=== PATIENT | male | born 1955 | race Caucasian/White ===

== ENCOUNTER → 2021-09-10 12:45 | Outpatient (REF) | payer MEDICARE, SELFPAY ==
--- NOTE | 2021-09-10 12:50 | CA_ITS ---
Transthoracic Echocardiogram Patient (Last, First, Middle): Alvarado Penaloza F Gender: Male Date of : 1955 Age: 66 Procedure Date: 09/10/2021 Procedure Type: Transthoracic Echocardiogram Location: OP Height: 182.88 cm Weight: 119.3 kg BSA: 2.39 m2 Heart Rate: bpm BP: 120 / 63 mmHg Overlay Plastician: SHERI Kat MD: Randell Robb [facility] Mine Development Engineer: Jean-Pierre Zendejas MD Symptoms: R01.1 - Cardiac murmur, unspecified Study Quality: Fair ECG Rhythm: Sinus Conclusions: - 1. Normal LV systolic and diastolic function 2. Normal cardiac valvular Doppler 3. No gross pericardial effusion Findings Procedure Information The patient declines contrast. Left Ventricle Normal left ventricular size, thickness, and systolic function. The visually estimated ejection fraction is between 55-60%. Spectral Doppler is indicative of a normal filling pattern. Right Ventricle Normal right ventricular cavity size and systolic function. Atria Both atria are normal in size. Interatrial shunt cannot be excluded. Aortic Valve Normal aortic valve structure and function. There is no aortic valve stenosis. There is no aortic valve regurgitation. Mitral Valve Normal mitral valve structure and function. There is trace mitral valve regurgitation. There is no mitral valve stenosis. Pulmonic Valve The pulmonic valve was not well visualized. Tricuspid Valve Likely normal tricuspid valve structure and function. Tricuspid regurgitation envelope is inadequate for calculation of right ventricular systolic pressure. Normal right atrial pressure. Great Vessels All visible segments of the aorta are normal in size. The pulmonary artery was not well visualized. Venous The inferior vena cava is normal in size and collapses greater than 50% with inspiration. Pericardium/Pleural There is no evidence of pericardial effusion. Prior Study Comparison No prior study available for comparison. Measurements 2D Linear Measurements IVSd: 1.05 0.6-0.9/0.6-1.0 cm LVIDd: 4.52 3.9-5.3/4.2-5.9 cm LVIDd Index: 1.89 2.4-3.2/2.2-3.1 cm/m2 LVIDs: 3.16 2.0-3.6 cm LVPWd: 1.00 0.7-1.1 cm Ao Root: 3.50 2.1-3.5 cm LA Diam: 4.00 2.7-3.8/3.0-4.0 cm LAIDs Index: 1.67 1.5-2.3 cm/m2 LV Mass: 198.90 67-162/88-224 g LV Mass Index: 83.22 43-95/49-115 g/m2 LVOT Diam: 2.10 3.0+(-)1.3 cm 2D Systolic Function EF 4C: 58.20 >55% EF 2C: 61.10 >55% EF BiP: 59.40 >55% Mitral Valve MV Pk E: 0.87 MV PK A: 0.77 MV Decel Time: 228.00 E/A: 1.10 E'Lateral: 9.57 E'Medial: 9.90 E/E' Med: 8.70 E/E' Lat: 9.00 PHT: 67.00 MVA PHT: 3.28 Decel [place]: 3.80 Aortic Valve AoV Pk Cornell: 1.61 AoV Mn Cornell: 1.10 AoV VTI: 0.33 AoV Pk Grad: 10.00 Aov Mn Grad: 6.00 ERICK Cont.VTI: 2.51 LVOT LVOT Pk Cornell: 1.06 LVOT Mn Cornell: 0.64 LVOT VTI: 0.24 LVOT Pk Grad: 4.00 LVOT Mn Grad: 2.00 LVOT Diam: 2.10 LVOT Area: 3.46 Diastolic Function MV Pk E: 0.87 MV Pk A: 0.77 E/A: 1.10 E'Medial: 9.90 E/E' Med: 8.70 E' Laterial: 9.57 E/E' Lat: 9.00 Right Ventricle TAPSE (mm): 2.59 TVS' Cornell: 13.10 Tricuspid Valve RA Press: 3.00 Great Vessels Aorta Ao Root-2D: 3.50 2.0-3.7 cm Ao Asc: 3.70 2.1-3.4 cm Ao Arch: 2.30 Updated in Other Vendor System with Status of Final Jean-Pierre Zendejas MD electronically signed on 09/10/2021 6:02:35 PM with status of Final
== END ==
LOC: HO.CARD 12:45
PROVIDERS: PCP Nurse Practitioner Family; Visit Provider Nurse Practitioner Family
DX: R01.1 Cardiac murmur, unspecified (principal)
CPT/HCPCS: 93306

== ENCOUNTER 2021-09-13 11:40 | Outpatient (REF) | payer MEDICARE, SELFPAY ==
[2021-09-13 14:02] LABS: Estimated Average Glucose 128 mg/dL; Hemoglobin A1c % 6.1 %
[2021-09-13 14:16] LABS: Creatinine Urine 291.96 mg/dL; Microalbum/Creatinine Ratio Ur 4.1 ug/mg cr
[2021-09-13 14:17] LABS: Alanine Aminotransferase 13 U/L (0-40); Albumin Level 4.6 g/dL (3.5-5.0); Alkaline Phosphatase 59 U/L (39-117); Anion Gap 13 (12-20); Aspartate Amino Transferase 22 U/L (5-37); Bilirubin Total 1.1 mg/dL (0.0-1.0); Blood Urea Nitrogen 13 mg/dL (9-16); Calcium 9.6 mg/dL (8.4-10.2); Carbon Dioxide 29 mmol/L (22-29); Chloride 104 mmol/L (96-108); Cholesterol 180 mg/dL; Estimated Glomerular Filt Rate 56; Glucose Fasting 150 mg/dL (60-99); HDL Cholesterol 46 mg/dL; LDL Cholesterol Calculated 119 mg/dl; Potassium 4.4 mmol/L (3.3-5.1); Sodium 142 mmol/L (135-145); Total Protein 7.3 g/dL (6.5-8.0); Triglycerides 79 mg/dL
[2021-09-13 14:41] LABS: Prostate Specific Antigen Scr 0.95 ng/mL (<0.05-4.0); TSH reflex Free T4 1.12 uIU/mL (0.32-4.0)
== END 2021-09-13 11:41 | disposition home or self-care (01) ==
LOC: HO.HMGCLDS 11:40
PROVIDERS: PCP Nurse Practitioner Family; Visit Provider Nurse Practitioner Family
DX: Z00.00 Encounter for general adult medical examination without abnormal findings (principal); Z12.5 Encounter for screening for malignant neoplasm of prostate; E11.9 Type 2 diabetes mellitus without complications
CPT/HCPCS: 36415; 80053; 80061; 82043; 83036; 84153; 84443

== ENCOUNTER 2021-09-30 15:13 | Emergency (ER) | payer MEDICARE, SELFPAY ==
--- NOTE | ~2021-09-30 | XR_ITS ---
EXAMINATION: XR CHEST CLINICAL INFORMATION: Palpitations COMPARISON: None TECHNIQUE: 2 views of the chest were obtained. FINDINGS: No significant abnormality is noted involving the heart, lungs, mediastinum, bony thorax or soft tissues. XR/XR chest 2V IMPRESSION: Unremarkable examination.
--- NOTE | 2021-09-30 15:17 | ECG_ITS ---
Test Reason : PALPITATIONS Blood Pressure : / mmHG Vent. Rate : 072 BPM Atrial Rate : 072 BPM P-R Int : 210 ms QRS Dur : 078 ms QT Int : 378 ms P-R-T Axes : 045 -12 011 degrees QTc Int : 413 ms Sinus rhythm with 1st degree A-V block Left axis deviation Nonspecific ST abnormality Lateral leads Abnormal ECG No previous ECGs available Referred By: Generic ED Physician Electronically Signed By:ERIC SOLORIO MD
[2021-09-30 15:44] VITALS: BP 164/83; PULSE 84; RESP 18; TEMP 36.6; O2SAT 97; BMI 35.9
[2021-09-30 16:25] LABS: COVID-19 Test Negative (Negative)
[2021-09-30 16:30] LABS: MANUAL DIFF FLAG NO
[2021-09-30 16:34] LABS: Basophils Percent Auto 0.6 % (0-2); Eosinophils Absolute Auto 0.1 X10*3/uL (0.0-0.4); Eosinophils Percent Auto 0.9 % (0-4); Hematocrit 45.1 % (42.0-52.0); Hemoglobin 15.4 g/dl (14.0-18.0); Imm Gran Abs Auto 0.01 X10*3/uL (0.00-0.03); Imm Gran Pct Auto 0.2 % (0.0-0.4); Lymphocytes Absolute Auto 1.6 X10*3/uL (1.2-4.9); Lymphocytes Percent Auto 25.3 % (20-40); Mean Corpuscular HGB Conc 34.1 g/dl (31.0-36.0); Mean Corpuscular Hemoglobin 31.3 pg (27.0-33.0); Mean Corpuscular Volume 91.7 fL (80.0-98.0); Mean Platelet Volume 10.4 fL (9.4-12.4); Monocytes Absolute Auto 0.5 X10*3/uL (0.1-1.2); Neutrophils Absolute Auto 4.2 x10*3/uL (2.0-8.3); Platelet Count 206 X10*3/uL (160-400); Red Blood Count 4.92 X10*6/uL (4.60-5.80); Red Cell Distribution Width 11.9 % (11.0-16.0); White Blood Count 6.4 X10*3/uL (4.8-10.8)
[2021-09-30 16:47] LABS: Alanine Aminotransferase 14 U/L (0-40); Albumin Level 4.7 g/dL (3.5-5.0); Alkaline Phosphatase 64 U/L (39-117); Anion Gap 12 (12-20); Aspartate Amino Transferase 19 U/L (5-37); Bilirubin Total 0.8 mg/dL (0.0-1.0); Blood Urea Nitrogen 11 mg/dL (9-16); Calcium 9.9 mg/dL (8.4-10.2); Carbon Dioxide 29 mmol/L (22-29); Chloride 102 mmol/L (96-108); Estimated Glomerular Filt Rate 59; Glucose Random 123 mg/dL (60-115); Potassium 4.1 mmol/L (3.3-5.1); Sodium 139 mmol/L (135-145); Total Protein 7.6 g/dL (6.5-8.0)
[2021-09-30 16:51] LABS: Troponin-I High Sensitivity 3.9 ng/L (<3.5-35.0)
[2021-09-30 17:08] VITALS: BP 162/65; PULSE 62; RESP 18; TEMP 36.7; O2SAT 96
--- NOTE | 2021-09-30 17:19 | ED.ARRPALP ---
HPI - Arrhythmia/Palpitations General Chief Complaint: Arrhythmia/Palpitations Stated Complaint: palpitations Time Seen by Provider: 09/30/21 17:14 Source: patient Mode of arrival: ambulatory Limitations: no limitations History of Present Illness HPI narrative: 66 y/o male with history of DM on metformin Presenting to the ER with intermittent palpitations and having for the last 2 or 3 days. He states he feels his heart beating. Sometimes it is fast other times it is normal rate. Episodes have been happening either at rest or with exertion and are brief. He states he has had a slight cough as well that is the only other symptom he has. He has no chest pain or shortness of breath. He has never had palpitations before. He is having some increased stress at home but otherwise denies a history of anxiety. He denies any history of drug use, no new meds, no alcohol use. He drinks 2 cups of caffeine per day without any recent increase or decrease. He recently saw his primary care doctor who thought he heard a systolic murmur so an echocardiogram was performed which was normal. MD complaint: palpitations Onset (ago): day(s) (3) Duration: intermittent Severity: mild Context: occurred during rest and occurred during exertion Associated symptoms: denies other symptoms Related Data Home Medications Medication Instructions Recorded Confirmed aspirin 81 mg chewable tablet 81 mg PO DAILY 09/14/20 04/17/21 flu vacc [id number](65yr up)-PF 240 ml IM 09/14/20 04/17/21 mcg/0.7 mL intramuscular syringe multivitamin with iron 1 tab PO DAILY 09/14/20 04/17/21 Previous Rx's Medication Instructions Recorded metformin 500 mg tablet 500 mg PO DAILY 90 Days #90 tab 05/21/21 Allergies Allergy/AdvReac Type Severity Reaction Status Date / Time atorvastatin Allergy Unknown Unknown Verified 09/30/21 15:43 Review of Systems Review of Systems: Constitutional: No Fever, No Chills ENT/Mouth: No sore throat, No Rhinorrhea, No Swallowing Difficulty Eyes: No Eye Pain, No Swelling, No Redness Cardiovascular: No Chest Pain, No SOB, No Orthopnea, No Edema Respiratory: + Cough, No Sputum, No Wheezing, No dyspnea, +Palpitations Gastrointestinal: No Nausea, No Vomiting, No Diarrhea, No abdominal Pain Genitourinary: No Dysuria, No Urinary Frequency, No Hematuria Musculoskeletal: No joint pain, No Myalgias Skin: No Skin Lesions, No rash Neuro: No Weakness, No Numbness, No Dizziness, No Headache Psych: + Anxiety/Panic, No Depression Heme/Lymph: No Bruising, No Lymphadenopathy Endocrine: No Polyuria, No Polydipsia [facility] Past Medical History Medical History (Updated 10/01/21 @ 00:02 by Nilsa Darby) Type 2 diabetes mellitus Surgical History History of surgery History of tooth extraction Family History Family History Father Stroke Unknown family medical history Pancreatic cancer Mother Cancer HTN (hypertension) Unknown family medical history Diabetes mellitus Social History Social History Alcohol intake: current Alcohol intake frequency: holidays/special occasions only Patient Tobacco Use Status: Never used Tobacco Use of substances other than those prescribed or required for medical reasons: No Advance Directives: No Advance Directives Information Provided: Yes Physical Exam Vital Signs: Vital Signs: Last Vital Signs Temp 98.1 F 09/30/21 17:08 Pulse 62 09/30/21 17:08 Resp 18 09/30/21 17:08 BP 162/65 H 09/30/21 17:08 Pulse Ox 96 09/30/21 17:08 Body Mass Index 35.9 Appearance: Alert. Oriented X3. No acute distress. Eyes: Pupils equal, round and reactive to light. ENT: Pharynx normal. Neck: Normal inspection. Neck supple. CVS: Normal heart rate and rhythm. Pulses normal. Respiratory: No respiratory distress. Breath sounds normal. Abdomen: Soft and nontender. +BS x4 Skin: Skin warm and dry. Normal skin color. Normal skin turgor. No rashes. Extremities: No lower extremity edema. Neuro: Oriented X 3. No motor deficit. No sensory deficit. Course Course Course Narrative: 66-year-old male with history of diabetes on metformin presents to the ER with intermittent brief episodes palpitations and feeling his heart beat that have been going on for the past 3 days. He has no associated chest pain, shortness of breath, diuresis, nausea, syncope or presyncope. His EKG is unremarkable, he has been in NSR during his ER visit without any active palpitations. Lytes and TSH are WNL. He had a recent normal ECHO which is reassuring. He follows w/ Dr. Mur[place] and will follow up this week - would likely benefit from a Holter monitor. Will have him f/u with Dr. Murica and Cardiology. Comfortable with discharge home with plan for outpatient follow up. Patient agrees with plan. MDM - Arrhythmia/Palpitations Differential Diagnosis Differential diagnosis: Likely palpitations, anxiety, sinus tachycardia, artial fibrillation, artial flutter, ventricular premature beats, supraventricular tachycardia, ventricular tachycardia and WPW Medical Records Attestation: I reviewed the patient's medical records. Lab Data Result diagrams: 09/30/21 16:12 09/30/21 16:12 Labs: Lab Results 09/30/21 09/30/21 09/30/21 Range/Units 15:50 16:12 16:12 WBC 6.4 (4.8-10.8) X10*3/uL RBC 4.92 (4.60-5.80) X10*6/uL Hgb 15.4 (14.0-18.0) g/dl Hct 45.1 (42.0-52.0) % MCV 91.7 (80.0-98.0) fL MCH 31.3 (27.0-33.0) pg MCHC 34.1 (31.0-36.0) g/dl RDW 11.9 (11.0-16.0) % Plt Count 206 (160-400) X10*3/uL MPV 10.4 (9.4-12.4) fL Immature Gran % (Auto) 0.2 (0.0-0.4) % Neut % (Auto) 66.0 (45-73) % Lymph % (Auto) 25.3 (20-40) % [place] % (Auto) 7.0 (2-11) % Eos % (Auto) 0.9 (0-4) % Baso % (Auto) 0.6 (0-2) % Lymph # (Auto) 1.6 (1.2-4.9) X10*3/uL [place] # (Auto) 0.5 (0.1-1.2) X10*3/uL Eos # (Auto) 0.1 (0.0-0.4) X10*3/uL Baso # (Auto) 0.0 (0.0-0.2) X10*3/uL Abs Immat Gran (auto) 0.01 (0.00-0.03) X10*3/uL Absolute Neuts (auto) 4.2 (2.0-8.3) x10*3/uL Absolute Nucleated RBC 0.000 (0.0-0.012) X10*3/uL Nucleated RBC % (auto) 0.0 (0.0-0.2) /100WBC Sodium 139 (135-145) mmol/L Potassium 4.1 (3.3-5.1) mmol/L Chloride 102 (96-108) mmol/L Carbon Dioxide 29 (22-29) mmol/L Anion Gap 12 (12-20) BUN 11 (9-16) mg/dL Creatinine 1.23 (0.5-1.4) mg/dL Estim Creat Clear Calc 79.0 Estimated GFR 59 Random Glucose 123 H (60-115) mg/dL Calcium 9.9 (8.4-10.2) mg/dL Magnesium 1.9 (1.6-2.6) mg/dL Total Bilirubin 0.8 (0.0-1.0) mg/dL AST 19 (5-37) U/L ALT 14 (0-40) U/L Alkaline Phosphatase 64 (39-117) U/L Troponin I High Sens (<3.5-35.0) ng/L Total Protein 7.6 (6.5-8.0) g/dL Albumin 4.7 (3.5-5.0) g/dL TSH 0.68 (0.32-4.0) uIU/mL COVID-19 (JL) Negative (Negative) COVID-19 Clin Com See Note 09/30/21 Range/Units 16:12 WBC (4.8-10.8) X10*3/uL RBC (4.60-5.80) X10*6/uL Hgb (14.0-18.0) g/dl Hct (42.0-52.0) % MCV (80.0-98.0) fL MCH (27.0-33.0) pg MCHC (31.0-36.0) g/dl RDW (11.0-16.0) % Plt Count (160-400) X10*3/uL MPV (9.4-12.4) fL Immature Gran % (Auto) (0.0-0.4) % Neut % (Auto) (45-73) % Lymph % (Auto) (20-40) % [place] % (Auto) (2-11) % Eos % (Auto) (0-4) % Baso % (Auto) (0-2) % Lymph # (Auto) (1.2-4.9) X10*3/uL [place] # (Auto) (0.1-1.2) X10*3/uL Eos # (Auto) (0.0-0.4) X10*3/uL Baso # (Auto) (0.0-0.2) X10*3/uL Abs Immat Gran (auto) (0.00-0.03) X10*3/uL Absolute Neuts (auto) (2.0-8.3) x10*3/uL Absolute Nucleated RBC (0.0-0.012) X10*3/uL Nucleated RBC % (auto) (0.0-0.2) /100WBC Sodium (135-145) mmol/L Potassium (3.3-5.1) mmol/L Chloride (96-108) mmol/L Carbon Dioxide (22-29) mmol/L Anion Gap (12-20) BUN (9-16) mg/dL Creatinine (0.5-1.4) mg/dL Estim Creat Clear Calc Estimated GFR Random Glucose (60-115) mg/dL Calcium (8.4-10.2) mg/dL Magnesium (1.6-2.6) mg/dL Total Bilirubin (0.0-1.0) mg/dL AST (5-37) U/L ALT (0-40) U/L Alkaline Phosphatase (39-117) U/L Troponin I High Sens 3.9 (<3.5-35.0) ng/L Total Protein (6.5-8.0) g/dL Albumin (3.5-5.0) g/dL TSH (0.32-4.0) uIU/mL COVID-19 (JL) (Negative) COVID-19 Clin Com ECG Data Attestation: I personally reviewed and interpreted this ECG as follows: ECG interpretation date: 09/30/21 ECG interpretation time: 18:12 Interpretation: Sinus rhythm with first-degree AV heart rate, 72 beats per minute, LA interval prolonged to 110 MS, normal QRS, no ST segment elevation or depressions, no premature ventricular complexes or premature atrial complexes. Critical Care Time Critical Care Time Critical Care Time: No Discharge Plan Discharge Clinical Impression: Palpitations Patient Disposition: Home, Self-Care Instructions: Heart Palpitations (ED) Additional Instructions: Your lab workup today was unremarkable. Recommend monitoring your heart rates at home. Recommend following up with Cardiology. Name and number below. Follow up with your Primary Care as scheduled on 10/16. If you develop new or worsening symptoms call 911 or come back to the ER for further evaluation. Prescriptions: No Action metformin 500 mg tablet 500 mg PO DAILY 90 Days Qty: 90 RF: 1 Fluzone HighDose Quad 20-21 PF 240 mcg/0.7 mL syringe IM RF: 0 multivitamin with iron Tablet 1 tab PO DAILY RF: 0 aspirin 81 mg tablet,chewable 81 mg PO DAILY RF: 0 Referrals: Tony Solis MD [Physician] - 1 week (palpitations, normall echo) Interventions: ED Discharge Assessment Last Done: 09/30/21 19:01 Discharge Date/Time: 09/30/21 19:01
[2021-09-30 17:31] LABS: Magnesium 1.9 mg/dL (1.6-2.6)
[2021-09-30 17:52] LABS: Thyroid Stimulating Hormone 0.68 uIU/mL (0.32-4.0)
== END 2021-09-30 19:01 | disposition home or self-care (01) ==
PROVIDERS: Physician Assistant; Emergency Provider Emergency Medicine; PCP Nurse Practitioner Family
DX: R00.2 Palpitations (principal); E11.9 Type 2 diabetes mellitus without complications; Z20.822 Contact with and (suspected) exposure to COVID-19; Z79.84 Long term (current) use of oral hypoglycemic drugs; Z79.82 Long term (current) use of aspirin; Z79.899 Other long term (current) drug therapy
CPT/HCPCS: 36415; 71046; 80053; 83735; 84443; 84484; 85025; 87635; 93005; 99283; 99284

== ENCOUNTER → 2021-10-17 15:07 | Outpatient (BNVA) | payer MEDICARE, SELFPAY | PROVIDERS: PCP Nurse Practitioner Family; Referring Provider Nurse Practitioner Family; Visit Provider Internal Medicine Cardiovascular Disease | DX: R00.2 Palpitations (principal) | CPT/HCPCS: 99202 ==

== ENCOUNTER 2022-11-13 16:19 | Outpatient (REF) | payer MEDICARE, SELFPAY ==
[2022-11-13 17:13] LABS: Mean Corpuscular HGB Conc 33.9 g/dl (31.0-36.0); Mean Corpuscular Volume 103.3 fL (80.0-98.0); Mean Platelet Volume 10.1 fL (9.4-12.4); NRBC Pct Auto 0.7 /100WBC (0.0-0.2); Platelet Count 195 X10*3/uL (160-400); Red Cell Distribution Width 19.3 % (11.0-16.0); White Blood Count 8.6 X10*3/uL (4.8-10.8)
[2022-11-13 17:59] LABS: Alanine Aminotransferase 16 U/L (0-40); Albumin Level 4.3 g/dL (3.5-5.0); Alkaline Phosphatase 64 U/L (39-117); Anion Gap 10 (12-20); Aspartate Amino Transferase 48 U/L (5-37); Bilirubin Total 7.9 mg/dL (0.0-1.0); Blood Urea Nitrogen 27 mg/dL (9-16); Calcium 9.2 mg/dL (8.4-10.2); Carbon Dioxide 26 mmol/L (22-29); Chloride 105 mmol/L (96-108); Cholesterol 90 mg/dL; Estimated Glomerular Filt Rate > 60; Glucose Fasting 236 mg/dL (60-99); HDL Cholesterol 41 mg/dL; LDL Cholesterol Calculated 26 mg/dl; Potassium 4.4 mmol/L (3.3-5.1); Sodium 137 mmol/L (135-145); Total Protein 6.8 g/dL (6.5-8.0); Triglycerides 119 mg/dL
[2022-11-13 18:01] LABS: Prostate Specific Antigen Scr 6.42 ng/mL (<0.05-4.0); TSH reflex Free T4 1.09 uIU/mL (0.32-4.0)
[2022-11-13 18:09] LABS: Hematocrit 18.6 % (42.0-52.0)
[2022-11-13 18:10] LABS: Hemoglobin 6.3 g/dl (14.0-18.0)
[2022-11-13 22:26] LABS: Bilirubin Direct 0.7 mg/dL (0.0-0.5)
[2022-11-14 11:15] LABS: Estimated Average Glucose 111 mg/dL; Hemoglobin A1c % 5.5 %
--- NOTE | 2022-11-14 15:02 | PM.HEMONCCN ---
Subjective - Subjective Chief complaint: Consult for: Significant anemia. Patient: new to practice Consult date: 11/14/22 Requesting Physician: Denis Primary Care Provider[facility] Summary: DIAGNOSIS: SEVERE ANEMIA. HPI - Consult Narrative Reason for consult: Consult for: Severe anemia. Narrative: Alvarado Penaloza is a 67 year old gentleman, who presented on 11/13, to the emergency department evaluation of elevated bilirubin and low hemoglobin. Patient stated since November 10 he noticed darkening of his urine and yellowish discoloration of his skin. He also has had dyspnea with exertion. Previously used to walk 2 miles but lately has not been able to walk to the bathroom without being short of breath. He denies fever, chills, chest discomfort, palpitations, melena, hematochezia, hematemesis, hemoptysis, abdominal pain, nausea, vomiting, diarrhea. No similar complaints in the past. He drinks 2-3 alcoholic drinks a week. Has been drinking for the last 40 years. Denies use of Tylenol. His initial colonoscopy showed polyps but follow-up colonoscopy about 5 years ago was negative. Review of Systems Constitutional: Constitutional: Reports fatigue, Reports lethargy and Reports malaise Cardiovascular: Cardiovascular: Reports no additional cardiovascular complaints and Reports dyspnea on exertion Respiratory: Respiratory: Reports dyspnea on exertion Gastrointestinal: Gastrointestinal: Reports no additional gastrointestinal complaints Genitourinary: Genitourinary: Reports no additional male genitourinary complaints Endocrine: Endocrine: Reports fatigue PMFSH Medical History; Type 2 diabetes mellitus: Mir-hxhebij-foppiwalb diabetes mellitus. Mixed hyperlipidemia. Functional capacity: independent ambulation Family History: Father: : Stroke Pancreatic cancer Mother: : Cancer HTN (hypertension) Diabetes mellitus Surgical History: History of surgery History of tooth extraction Social History: Housing: [facility] Alcohol intake: current Alcohol intake frequency: holidays/special occasions only Patient Tobacco Use Status: Former Tobacco user Review of Systems - Constitutional Reports system reviewed and no additional complaints, except as documented, Reports fatigue, Reports lack of energy, Reports malaise, Reports weakness, Denies fever(s), Denies weight loss - Eyes Reports system reviewed and no additional complaints, except as documented - ENT Reports system reviewed and no additional complaints, except as documented - Cardiovascular Reports system reviewed and no additional complaints, except as documented - Respiratory Reports no additional respiratory complaints - Gastrointestinal Reports system reviewed and no additional complaints, except as documented - Genitourinary Genitourinary: Reports no additional male genitourinary complaints - Musculoskeletal Reports system reviewed and no additional complaints, except as documented - Integumentary/Breasts Skin/Breast: Reports no additional skin complaints - Neurologic Reports system reviewed and no additional complaints, except as documented - Psychiatric Reports system reviewed and no additional complaints, except as documented - Endocrine Reports no additional endocrine complaints - Hematologic/Lymphatic Reports system reviewed and no additional complaints, except as documented - Allergic/Immunologic Reports system reviewed and no additional complaints, except as documented Oncology Screenings - ECOG Performance Status ECOG Performance Status: 2 [facility] Medical History: Medical History (Last Reviewed 11/13/22 @ 23:09 by Ema Liao MD) Type 2 diabetes mellitus Functional capacity: wheelchair bound Patient : No Family History: Family History (Last Reviewed 11/13/22 @ 23:09 by Ema Liao MD) Father Stroke Unknown family medical history Pancreatic cancer Mother Cancer HTN (hypertension) Unknown family medical history Diabetes mellitus Surgical History: Surgical History (Last Reviewed 11/13/22 @ 23:09 by Ema Liao MD) History of surgery History of tooth extraction Social History: Social History (Last Updated 11/14/22 @ 07:37 by Robbie Barrios MD) Living Situation History: Household Members: None Housing: Condominium Do you presently have visiting nurse or other home services: No Tobacco History: Patient Tobacco Use Status: Former Tobacco user Years Smoked: quit 30 years e-Cigarette/Vaping Use: Never Used Second Hand Smoke Exposure: No Advance Directives: Advance Directives Date on File: 11/15/22 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: Yes Current occupational status: retired Home Medications and Allergies Home Medications Medication Instructions Recorded Confirmed Type metformin 500 mg tablet 500 mg PO DAILY@1700 11/13/22 11/13/22 History rosuvastatin 10 mg tablet (Crestor) 10 mg PO BEDTIME 11/13/22 11/13/22 History Allergies Allergy/AdvReac Type Severity Reaction Status Date / Time atorvastatin Allergy Unknown Unknown Verified 11/13/22 19:43 Physical Exam - Constitutional Present: moderate distress - Routine HEENT Exam Head: Present: normocephalic Eye: Present: normal appearance ENT: Present: mucous membranes moist - Routine Neck Exam Present: supple - Routine Respiratory Exam Present: CTAB - Routine Cardiovascular Exam Cardiovascular: Present: RRR, S1, S2 - Routine Abdominal Exam Present: soft, nontender - Routine Extremities Exam Present: nontender - Routine Skin Exam Present: intact - Detailed Neurological Exam: Coma Scale Eye Opening: Spontaneous (4) - Routine Psychiatric Exam Present: anxious Hem/Onc Consult Result - Labs CBC & Chem 7: 11/13/22 16:47 11/13/22 16:47 Labs: Short CBC 11/13/22 Range/Units 16:47 WBC 8.6 (4.8-10.8) X10*3/uL Hgb 6.3 L* D (14.0-18.0) g/dl Hct 18.6 L* D (42.0-52.0) % Plt Count 195 (160-400) X10*3/uL BMP 11/13/22 16:47 Sodium 137 Potassium 4.4 Chloride 105 Carbon Dioxide 26 BUN 27 H Creatinine 1.01 Calcium 9.2 D Liver Function 11/13/22 Range/Units 16:47 Total Bilirubin 7.9 H (0.0-1.0) mg/dL Direct Bilirubin 0.7 H (0.0-0.5) mg/dL AST 48 H (5-37) U/L ALT 16 (0-40) U/L Alkaline Phosphatase 64 (39-117) U/L Albumin 4.3 (3.5-5.0) g/dL Assessment and Plan Patient Active problem list reviewed?: Yes (1) Hemolytic anemia Status: Acute (2) Acute hemolytic anemia Status: Acute Assessment and plan: This is a pleasant 67-year-old gentleman who presented yesterday, with easy fatigability. He was noted to have significant anemia: CBC from today: WBC 8.3, HGB 5.4, HCT 15.9, MCV 104.6, PLT 174. Retic: 14.9. LDH: 830. Bilirubin 5.4, direct bilirubin 0.7. FRANCESCA 80: Positive. For IgG. Negative for complement. Peripheral smear: In is a situs is, poikilocytosis , polychromasia, basophilic stippling. Picture is most consistent with hemolytic anemia. No underlying cause is obvious. DIFFERENTIAL DIAGNOSIS: 1. MEDICATION RELATED: Not on any new medications. 2. Megaloblastic Anemia: B12 470. Folate 16.2. 3. RELATED TO INFECTION: Mycoplasma pneumonia can cause hemolytic anemia on the basis of cold agglutinins. No evidence for pneumonia: Chest x-ray: Unremarkable chest examination. 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 PLAN: To start him on steroids. He received a dose of Solu-Medrol 125 mg. Can start prednisone 60 mg daily. He is significantly anemic. Will transfuse him with the least incompatible blood, to help improve his oxygen carrying capacity and functional status. Thank you for the consult, I will follow along with you, CC: Randell Robb. - Time Spent With Patient Time Spent with Patient (in minutes): 30
== END 2022-11-13 16:20 | disposition home or self-care (01) ==
LOC: HO.LAB 16:19
PROVIDERS: PCP Nurse Practitioner Family; Visit Provider Internal Medicine
DX: Z00.00 Encounter for general adult medical examination without abnormal findings (principal); E11.9 Type 2 diabetes mellitus without complications; R53.83 Other fatigue; Z12.5 Encounter for screening for malignant neoplasm of prostate
CPT/HCPCS: 36415; 80053; 80061; 82248; 83036; 84153; 84443; 85027

== ENCOUNTER 2022-11-13 19:21 | Inpatient (IN) | payer MEDICARE, SELFPAY ==
--- NOTE | ~2022-11-13 | CT_ITS ---
EXAMINATION: CT ABDOMEN AND PELVIS WITH CONTRAST CLINICAL INFORMATION: Question acute hepatic failure, portal thrombosis COMPARISON: None TECHNIQUE: Multidetector volumetric images were obtained from the superior aspect of the liver through the pubic symphysis following administration 85 mL of Omnipaque 350 intravenous contrast. Sagittal and coronal reformatted images were obtained on the technologist's workstation. Oral contrast: No This CT examination was performed using dose optimization techniques as appropriate, variously including the following: *Automated exposure control *Adjustment of mA and/or kV according to patient size (this includes techniques or standardized protocols for targeted exams where dose is matched to indication/reason for exam; i.e. extremities or head) *Use of iterative reconstruction technique DLP: 1030 mGy-cm FINDINGS: LUNG BASES: The visualized lung bases are unremarkable. LIVER, GALLBLADDER, AND BILIARY TREE: The liver is normal in size, shape, and attenuation. No focal hepatic lesion or biliary ductal dilatation is present. The gallbladder is unremarkable with no evidence of radiopaque gallstones, gallbladder wall thickening, or obvious pericholecystic inflammatory changes. PANCREAS: Unremarkable. SPLEEN: Unremarkable. ADRENAL GLANDS: Unremarkable. KIDNEYS AND URETERS: Probable cystic change on the right. No hydronephrosis. Nonobstructing small calculus on the left. Small low-density lesion on left to small to characterize may be an evolving cyst. BLADDER: Mildly thick-walled bladder GASTROINTESTINAL TRACT: Nonobstructing bowel pattern. No free fluid. Probable small hiatal hernia ABDOMINAL WALL: Probable beginnings of left greater than right inguinal herniation LYMPH NODES: Normal. VASCULAR: Some atherosclerotic change in the aorta. No aneurysmal change. The portal vein is enhancing. No convincing evidence for a filling defect though this is not a dedicated CTA/CTV PELVIC VISCERA: Prominent prostate. OSSEOUS STRUCTURES: Degenerative changes. Some ankylosis in the region of the left SI joint. Degenerative changes in the lower lumbar sacral spine with likely areas of herniation at the disc level CT/CT abdomen pelvis w IV con IMPRESSION: This is not a multiphase study directed toward the vasculature such as CTA CTV. Given this there is no evidence for filling defect in the portal system to suggest thrombosis. I would recommend ultrasound with Doppler interrogation for full evaluation. Other findings are as noted above. Mildly thick-walled bladder could be hypertrophy or cystitis Fleischner guidelines were followed.
--- NOTE | ~2022-11-13 | XR_ITS ---
EXAMINATION: XR CHEST CLINICAL INFORMATION: SOB COMPARISON: None TECHNIQUE: Frontal view of the chest was obtained. FINDINGS: No significant abnormality is noted involving the heart, lungs, mediastinum, bony thorax or soft tissues. XR/XR chest 1V IMPRESSION: Unremarkable chest examination.
[2022-11-13 19:38] VITALS: BP 158/63; PULSE 107; RESP 20; TEMP 36.6; O2SAT 98; BMI 36.3
--- NOTE | 2022-11-13 19:39 | ED.GENADULT ---
HPI - General Adult General Chief complaint: Abdominal Pain <AZUL Kruse - Last Filed: 11/13/22 19:55> Stated complaint: critical low H/H? urgent care and pcp referred him <AZUL Kruse - Last Filed: 11/13/22 19:55> Time Seen by Provider: 11/13/22 19:49 <AZUL Kruse - Last Filed: 11/13/22 19:55> Source: patient <Christian Stanley MD - Last Filed: 11/14/22 02:34> Mode of arrival: ambulatory <Christian Stanley MD - Last Filed: 11/14/22 02:34> Limitations: no limitations <Christian Stanley MD - Last Filed: 11/14/22 02:34> History of Present Illness HPI narrative: Patient is 67 years old with history of diabetes, hyperlipidemia sent from urgent care center for evaluation. Apparently patient has been feeling fatigued last 1 week for last few days noticed high colored urine felt nauseated no vomiting no abdominal pain patient has been drinking alcohol since age 20yrs , 2-3 drinks a week. No fever no chills no use of Tylenol no risk for hepatitis no melena no gum bleeding no bleeding from any other place patient initial colonoscopy showed polyps but follow-up last colonoscopy about 5 years ago negative <Christian Stanley MD - Last Filed: 11/14/22 02:34> Related Data Home medications: Home Medications Medication Instructions Recorded Confirmed metformin 500 mg tablet 500 mg PO DAILY@1700 11/13/22 11/13/22 rosuvastatin 10 mg tablet (Crestor) 10 mg PO BEDTIME 11/13/22 11/13/22 Previous Rx's Medication Instructions Recorded aspirin 81 mg chewable tablet 81 mg PO DAILY 90 days #90 tabs 12/06/21 multivitamin with iron 1 tab PO DAILY 90 days #90 tabs 12/06/21 sildenafil 25 mg tablet 25 mg PO DAILY PRN sexual activity 10/14/22 30 days #10 tabs <AZUL Kruse - Last Filed: 11/13/22 19:55> Allergies/adverse reactions: Allergies Allergy/AdvReac Type Severity Reaction Status Date / Time atorvastatin Allergy Unknown Unknown Verified 11/13/22 19:43 <AZUL Kruse Last Filed: 11/13/22 19:55> Review of Systems Review of Systems: Yes all other systems are reviewed and are negative <Christian Stanley MD - Last Filed: 11/14/22 02:34> [facility] Past Medical History Medical History: Medical History Type 2 diabetes mellitus <AZUL Kruse - Last Filed: 11/13/22 19:55> Surgical History: Surgical History History of surgery History of tooth extraction <AZUL Kruse - Last Filed: 11/13/22 19:55> Family History Family History: Family History Father Stroke Unknown family medical history Pancreatic cancer Mother Cancer HTN (hypertension) Unknown family medical history Diabetes mellitus <AZUL Kruse - Last Filed: 11/13/22 19:55> Social History Social History: Social History Housing: Condominium Alcohol intake: current Alcohol intake frequency: holidays/special occasions only Patient Tobacco Use Status: Former Tobacco user Years Smoked: quit 30 years e-Cigarette/Vaping Use: Never Used Second Hand Smoke Exposure: No Advance Directives: No Advance Directives Information Provided: Yes service: Yes Current occupational status: retired Cognitive needs: No Hearing needs: No Vision needs: No <AZUL Kruse - Last Filed: 11/13/22 19:55> Physical Exam ED Vital Signs: Vital Signs - 24 hr 11/13/22 19:38 Temperature 97.9 F Pulse Rate 107 H Respiratory Rate 20 Blood Pressure 158/63 H Pulse Oximetry 98 Oxygen Delivery Method Room Air BMI result Body Mass Index 36.3 <AZUL Kruse - Last Filed: 11/13/22 19:55> Vital Signs - 24 hr 11/13/22 19:38 Temperature 97.9 F Pulse Rate 107 H Respiratory Rate 20 Blood Pressure 158/63 H Pulse Oximetry 98 Oxygen Delivery Method Room Air BMI result Body Mass Index 36.3 <Christian Stanley MD - Last Filed: 11/14/22 02:34> Appearance: Alert. Oriented X3. No acute distress. Eyes: PERRLA, No Nystagmus pallor icteric skeletal ENT: Pharynx normal. Oral Mucosa moist Neck: Normal inspection. Neck supple. CVS: Normal heart rate and rhythm. Pulses normal. Respiratory: No respiratory distress. Equal air entry bilateral, no wheezing/rales/rhonchi Abdomen: Soft and nontender. Bowel sounds are present, no mass palpable, no CVA tenderness Skin: Skin warm and dry. icteric skin color. Normal skin turgor. Extremities: No lower extremity edema. No calf tenderness Neuro: Oriented X 3. <Christian Stanley MD - Last Filed: 11/14/22 02:34> Course Course Course Narrative: RME--67-year-old male with a past medical history of diabetes, on ASA, presenting to the ED complaining of hematuria, SOB, and jaundice noted yesterday. Admits was see at urgent care this afternoon noted to have low H&H & high bilirubin. H&H 6.3/18.6 today with a bilirubin of 7.9 and BUN of 27 Patient very short of breath after walking into triage, jaundice with scleral icterus. Tachycardic likely from volume depletion rather than severe sepsis Patient to be brought back to the main emergency department immediately. EKG, labs, UA, CXR, COVID/flu/RSV, hepatitis panel, type and screen and 1 unit of RBCs ordered <AZUL Kruse - Last Filed: 11/13/22 19:55> Medications Administered Generic Name Dose Route Start Last Admin Trade Name Freq PRN Reason Stop Dose Admin Sodium Chloride 3 ml 11/14/22 00:00 11/14/22 01:34 0.9 % Sodium Chloride Flush 3 Ml Syringe IVFLUSH Not Given QSHIFT PRAVEEN Discontinued Medications Generic Name Dose Route Start Last Admin Trade Name Freq PRN Reason Stop Dose Admin Iohexol 100 ml 11/13/22 21:02 11/13/22 21:02 Iohexol 350 Mg/Ml 100 Ml Infus..Btl IV 11/13/22 21:03 100 ml ONCE ONE Administration <AZUL Kruse - Last Filed: 11/13/22 19:55> Medications Administered Generic Name Dose Route Start Last Admin Trade Name Freangela PRN Reason Stop Dose Admin Sodium Chloride 3 ml 11/14/22 00:00 11/14/22 01:34 0.9 % Sodium Chloride Flush 3 Ml Syringe IVFLUSH Not Given QSHIFT PRAVEEN Discontinued Medications Generic Name Dose Route Start Last Admin Trade Name Freq PRN Reason Stop Dose Admin Iohexol 100 ml 11/13/22 21:02 11/13/22 21:02 Iohexol 350 Mg/Ml 100 Ml Infus..Btl IV 11/13/22 21:03 100 ml ONCE ONE Administration <Christian Stanley MD - Last Filed: 11/14/22 02:34> Medical Decision Making Medical Decision Making [facility] Narrative: Patient acute anemia with elevated indirect bilirubin with normal liver enzymes elevated LDH suggestive of intravascular hemolysis. CT scan of the abdomen negative for acute hepatic injury stool negative for occult blood urine negative for hemolysis patient does have significant anemia although has intravascular hemolysis but urine is negative need further evaluation will give IV steroids and to admit <Christian Stanley MD - Last Filed: 11/14/22 02:34> Differential Diagnosis Alcoholic cirrhosis/hemolytic anemia/hepatitis/portal vein thrombosis <Christian Stanley MD - Last Filed: 11/14/22 02:34> Lab Data [facility] Lab Attestation statement: I reviewed the patient's lab results. <Christian Stanley MD - Last Filed: 11/14/22 02:34> Labs: Lab Results 11/13/22 11/13/22 11/13/22 Range/Units 20:05 20:05 20:05 PT 12.7 (10.0-13.1) SEC INR 1.1 (0.9-1.1) APTT 24.2 L (26.0-36.4) SEC Direct Bilirubin (0.0-0.5) mg/dL Ammonia (13-55) umol/L Lactate Dehydrogenase (118-273) U/L Stool Occult Blood (NEGATIVE) Acetaminophen (<30) mcg/mL Blood Type O Positive Antibody Screen POSITIVE FRANCESCA, Polyspecific POSITIVE A Positive FRANCESCA Work-up IgG=Pos [id number] A Crossmatch See Detail 01/04/23 01/04/23 01/04/23 Range/Units 20:06 20:06 22:19 PT (10.0-13.1) SEC INR (0.9-1.1) APTT (26.0-36.4) SEC Direct Bilirubin 0.7 H (0.0-0.5) mg/dL Ammonia 25 (13-55) umol/L Lactate Dehydrogenase 830 H (118-273) U/L Stool Occult Blood NEGATIVE (NEGATIVE) Acetaminophen < 1 (<30) mcg/mL Blood Type Antibody Screen FRANCESCA, Polyspecific Positive FRANCESCA Work-up Crossmatch <AZUL Kruse - Last Filed: 11/13/22 19:55> Lab Results 11/13/22 11/13/22 11/13/22 Range/Units 20:05 20:05 20:05 PT 12.7 (10.0-13.1) SEC INR 1.1 (0.9-1.1) APTT 24.2 L (26.0-36.4) SEC Direct Bilirubin (0.0-0.5) mg/dL Ammonia (13-55) umol/L Lactate Dehydrogenase (118-273) U/L Stool Occult Blood (NEGATIVE) Acetaminophen (<30) mcg/mL Blood Type O Positive Antibody Screen POSITIVE FRANCESCA, Polyspecific POSITIVE A Positive FRANCESCA Work-up IgG=Pos [id number] A Crossmatch See Detail 11/13/22 11/13/22 11/13/22 Range/Units 20:06 20:06 22:19 PT (10.0-13.1) SEC INR (0.9-1.1) APTT (26.0-36.4) SEC Direct Bilirubin 0.7 H (0.0-0.5) mg/dL Ammonia 25 (13-55) umol/L Lactate Dehydrogenase 830 H (118-273) U/L Stool Occult Blood NEGATIVE (NEGATIVE) Acetaminophen < 1 (<30) mcg/mL Blood Type Antibody Screen FRANCESCA, Polyspecific Positive FRANCESCA Work-up Crossmatch <Christian Stanley MD - Last Filed: 11/14/22 02:34> Critical Care Time Critical Care Time Critical Care Time: Yes <Christian Stanley MD - Last Filed: 11/14/22 02:34> Total Critical Care Time: 55 <Christian Stanley MD - Last Filed: 11/14/22 02:34> Attestation: The patient was critically ill with a high probability of imminent or life threatening deterioration. I spent greater than 60 minutes of discontinuous time evaluating the patient,delivering critical care at the bedside, discussing and evaluating pertinent data with consultants. Critical care time does not include time spent performing separately billable procedures or teaching. Total time spent performing critical care was 55 minutes. <Christian Stanley MD - Last Filed: 11/14/22 02:34> Discharge Plan Discharge Clinical Impression: Acute hemolytic anemia, Hyperbilirubinemia <AZUL Kruse - Last Filed: 11/13/22 19:55> Patient Disposition: Admitted As Inpatient <AZUL Kruse - Last Filed: 11/13/22 19:55>
--- NOTE | 2022-11-13 19:40 | ECG_ITS ---
Test Reason : SOB Blood Pressure : / mmHG Vent. Rate : 092 BPM Atrial Rate : 092 BPM P-R Int : 190 ms QRS Dur : 074 ms QT Int : 356 ms P-R-T Axes : 029 -06 002 degrees QTc Int : 440 ms Normal sinus rhythm Normal ECG When compared with ECG of 30-SEP-2021 15:23, No significant change was found Referred By: Radha Valles Electronically Signed By:JAZLYN SOSA
[2022-11-13 20:30] LABS: INTERNATIONAL NORM RATIO 1.1 (0.9-1.1); Prothrombin Time 12.7 SEC (10.0-13.1)
[2022-11-13 20:33] LABS: Partial Thromboplastin Time 24.2 SEC (26.0-36.4)
[2022-11-13 20:35] LABS: Ammonia 25 umol/L (13-55)
[2022-11-13 20:56] LABS: Acetaminophen LAB < 1 mcg/mL (<30)
[2022-11-13] MEDS: iohexoL 350 MG/ML 100 ML INFUS..BTL IV (21:02)
--- NOTE | 2022-11-13 21:31 | PHA.MEDREC ---
Pharmacy Consult ? Medication Reconciliation Pharmacy has completed the medication reconciliation. Patient reported all medications. Cris Shields, DamionD
[2022-11-13 22:23] LABS: OBS Int Ctl Valid YES; OBS1 NEGATIVE (NEGATIVE)
[2022-11-13 23:01] LABS: Bilirubin Direct 0.7 mg/dL (0.0-0.5)
--- NOTE | 2022-11-13 23:03 | PM.IMHP ---
History of Present Illness Date of Service: 11/13/22 Chief Complaint: Fatigue This is a 67-year-old male with pertinent history of cfx-zsffdzi-dlyecyycx diabetes mellitus, mixed hyperlipidemia presents to the emergency department evaluation of elevated bilirubin and low hemoglobin. Patient states since November 10 he has noticed darkening of his urine and yellowish discoloration of his skin. Patient also has had dyspnea with exertion. Previously used to walk 2 miles but lately has not been able to walk to the bathroom without being short of breath. He denies fever, chills, chest discomfort, palpitations, melena, hematochezia, hematemesis, hemoptysis, abdominal pain, nausea, vomiting, diarrhea. No similar complaints in the past. Admits to drinking 2-3 alcoholic drinks a week has been drinking for the last 40 years. Denies use of Tylenol. Patient states initial colonoscopy showed polyps but follow-up colonoscopy about 5 years ago was negative. Review of Systems Constitutional: Constitutional: Reports fatigue, Reports lethargy and Reports malaise Cardiovascular: Cardiovascular: Reports no additional cardiovascular complaints and Reports dyspnea on exertion Respiratory: Respiratory: Reports dyspnea on exertion Gastrointestinal: Gastrointestinal: Reports no additional gastrointestinal complaints Genitourinary: Genitourinary: Reports no additional male genitourinary complaints Endocrine: Endocrine: Reports fatigue [facility] Medical History Type 2 diabetes mellitus Functional capacity: independent ambulation Family History Father Stroke Unknown family medical history Pancreatic cancer Mother Cancer HTN (hypertension) Unknown family medical history Diabetes mellitus Surgical History History of surgery History of tooth extraction Social History Housing: Condominium Alcohol intake: current Alcohol intake frequency: holidays/special occasions only Patient Tobacco Use Status: Former Tobacco user Years Smoked: quit 30 years e-Cigarette/Vaping Use: Never Used Second Hand Smoke Exposure: No Advance Directives: No Advance Directives Information Provided: Yes service: Yes Current occupational status: retired Cognitive needs: No Hearing needs: No Vision needs: No Meds Allergies Allergy/AdvReac Type Severity Reaction Status Date / Time atorvastatin Allergy Unknown Unknown Verified 11/13/22 19:43 Active Medications: Current Medications Acetaminophen (Acetaminophen 325 Mg Tablet) 650 mg PO Q6H PRN PRN Reason: Pain, Mild (Pain Scale 1-3) Dextrose (Dextrose 50 % 25 Gm/50 Ml Syringe) 25 gm IVPUSH Q15M PRN; Protocol PRN Reason: per Hypoglycemia Standing Ord. Glucose (Glucose Gel 15 Gm Gel..Gram.) 15 gm PO Q15M PRN; Protocol PRN Reason: per Hypoglycemia Standing Ord. Insulin Human Lispro (Insulin Lispro 100 Unit/Ml 3 Ml Vial) 0 unit SUBCUT [facility]; Protocol Melatonin (Melatonin 3 Mg Tablet) 6 mg PO BEDTIME PRN PRN Reason: Insomnia Ondansetron HCl (Ondansetron Hcl 4 Mg/2 Ml Vial) 4 mg IVPUSH Q8H PRN PRN Reason: Nausea and Vomiting Sodium Chloride (0.9 % Sodium Chloride Flush 3 Ml Syringe) 3 ml IVFLUSH [facility] Home Medications Medication Instructions Recorded Confirmed Last Taken Type metformin 500 mg tablet 500 mg PO DAILY@1700 11/13/22 11/13/22 11/13/22 History rosuvastatin 10 mg tablet (Crestor) 10 mg PO BEDTIME 11/13/22 11/13/22 11/12/22 History Physical Exam Vital Signs and Narrative: Vital Signs: Last Vital Signs Temp 97.9 F 11/13/22 19:38 Pulse 107 H 11/13/22 19:38 Resp 20 11/13/22 19:38 BP 158/63 H 11/13/22 19:38 Pulse Ox 98 11/13/22 19:38 O2 Del Method 11/13/22 19:38 BMI result Body Mass Index 36.3 Middle-aged male lying in bed in no distress Neck supple, no JVD, scleral icterus Tachycardic with regular rhythm, S1-S2 heard Regular breath sounds bilaterally, no wheezing or crackles appreciated Abdomen soft nontender, no guarding, no rigidity Patient is awake, alert and oriented to self, place, time and person ; no focal motor deficit Psych: Normal mood No pedal edema Results Labs Labs: Laboratory Results - last 24 hr 11/13/22 11/13/22 11/13/22 20:05 20:05 20:06 PT 12.7 INR 1.1 APTT 24.2 L Direct Bilirubin Ammonia 25 Stool Occult Blood Acetaminophen Blood Type O Positive Antibody Screen POSITIVE Crossmatch See Detail 11/13/22 11/13/22 20:06 22:19 PT INR APTT Direct Bilirubin 0.7 H Ammonia Stool Occult Blood NEGATIVE Acetaminophen < 1 Blood Type Antibody Screen Crossmatch Imaging Radiologist's Impressions: Impressions Chest X-Ray 11/13/22 20:16 IMPRESSION: Unremarkable chest examination. Abdomen/Pelvis CT 11/13/22 21:09 IMPRESSION: This is not a multiphase study directed toward the vasculature such as CTA CTV. Given this there is no evidence for filling defect in the portal system to suggest thrombosis. I would recommend ultrasound with Doppler interrogation for full evaluation. Other findings are as noted above. Mildly thick-walled bladder could be hypertrophy or cystitis Fleischner guidelines were followed. Assessment and Plan (1) Anemia: Status: Acute (2) Jaundice: Status: Acute (3) Diabetes: Status: Acute (4) Fatigue: Status: Acute Plan This is a 67-year-old male with pertinent history of khl-bvnqema-ocwrevfff diabetes mellitus, mixed hyperlipidemia presents to the emergency department evaluation of elevated bilirubin and low hemoglobin. #. Acute symptomatic anemia #. Unconjugated jaundice -patient without abdominal pain/GI symptoms and CT abdomen/pelvis unrevealing. Stool occult blood negative. Concerning for hemolysis as a cause of acute symptomatic anemia and unconjugated jaundice. Obtaining LDH and haptoglobin. No kidney failure or thrombocytopenia. Obtaining peripheral smear. No infectious etiology, UA pending. Obtain Jose test, retic count and consult Hematology. No new medication, no splenomegaly. 1 unit PRBC ordered in the ER. #. Pzb-ygvfqjp-fvkcenmua diabetes mellitus type 2 with hyperglycemia: Hold metformin and initiate Accu-Cheks with sliding scale insulin. Diet: Diabetic diet Full code DVT prophylaxis: Mechanical Admit as inpatient and will require two night minimum hospital stay for evaluation of acute anemia and unconjugated jaundice. Time Spent With Patient Time: Total time managing care of this patient today ____ minutes. Quality Stroke Does the patient have a stroke diagnosis?: No VTE Prior VTE?: No VTE Risk Level:: Medical - moderate - high VTE Device Contraindication: N/A - Device Ordered VTE Drug Contraindication: Treatment Not Indicated
[2022-11-13 23:17] LABS: Lactate Dehydrogenase 830 U/L (118-273)
--- NOTE | 2022-11-13 23:37 | PC.NURSE ---
called lab about the status of the blood to be transfued... informed that there were positive antbiodies on his type and screen and patient therefore requires further work up before blood can be transfused. lab states it may need to come [facility] they will keep me updated. patient resting comfortably on stretcher, on shelter monitor. no current complaints or distress.will continue to monitor
[2022-11-14] VITALS (17 sets, daily range): BP systolic 120–194; BP diastolic 41–81; PULSE 72–111; RESP 11–22; TEMP 36.6–37.4; O2SAT 96–100
[2022-11-14 00:24] LABS: Immature Retic Fraction 37.9 % (2.3-13.4); Retic HGB Equivalent 41.2 pg (30.0-35.0); Reticulocyte Percent 14.9 % (0.5-1.8); Reticulocytes Absolute 0.244 X10*6/uL (0.026-0.095)
[2022-11-14 02:41] LABS: Vitamin B12 470 pg/mL (200-900)
[2022-11-14 06:26] LABS: COVID-19 Test Negative (Negative); IDNOW Serial# BCCEAD1C
[2022-11-14 06:59] LABS: MANUAL DIFF FLAG NO
[2022-11-14 07:02] LABS: Basophils Percent Auto 0.5 % (0-2); Eosinophils Absolute Auto 0.2 X10*3/uL (0.0-0.4); Eosinophils Percent Auto 2.6 % (0-4); Imm Gran Abs Auto 0.12 X10*3/uL (0.00-0.03); Imm Gran Pct Auto 1.4 % (0.0-0.4); Lymphocytes Absolute Auto 1.7 X10*3/uL (1.2-4.9); Lymphocytes Percent Auto 20.1 % (20-40); Mean Corpuscular Hemoglobin 35.5 pg (27.0-33.0); Mean Corpuscular Volume 104.6 fL (80.0-98.0); Mean Platelet Volume 9.9 fL (9.4-12.4); Monocytes Absolute Auto 0.4 X10*3/uL (0.1-1.2); Monocytes Percent Auto 4.8 % (2-11); NRBC Pct Auto 0.8 /100WBC (0.0-0.2); Neutrophils Absolute Auto 5.9 x10*3/uL (2.0-8.3); Neutrophils Percent Auto 70.6 % (45-73); Platelet Count 174 X10*3/uL (160-400); Red Blood Count 1.52 X10*6/uL (4.60-5.80); Red Cell Distribution Width 21.2 % (11.0-16.0); White Blood Count 8.3 X10*3/uL (4.8-10.8)
[2022-11-14 07:05] LABS: Glucose, Whole Blood 191 mg/dL (60-115)
[2022-11-14 07:10] LABS: Hematocrit 15.9 % (42.0-52.0); Hemoglobin 5.4 g/dl (14.0-18.0)
[2022-11-14] MEDS: Insulin Lispro 100 UNIT/ML 3 ML VIAL SUBCUT ×4 (07:23→21:19)
[2022-11-14] MEDS: 0.9 % Sodium Chloride Flush 3 ML SYRINGE IVFLUSH ×2 (07:24→18:13)
[2022-11-14 07:31] LABS: Alanine Aminotransferase 16 U/L (0-40); Alkaline Phosphatase 56 U/L (39-117); Anion Gap 12 (12-20); Aspartate Amino Transferase 45 U/L (5-37); Bilirubin Total 5.4 mg/dL (0.0-1.0); Blood Urea Nitrogen 27 mg/dL (9-16); Calcium 8.9 mg/dL (8.4-10.2); Carbon Dioxide 25 mmol/L (22-29); Chloride 107 mmol/L (96-108); Creatinine Clr Calc Pharmacy 90.1; Estimated Glomerular Filt Rate > 60; Glucose Random 174 mg/dL (60-115); Potassium 3.9 mmol/L (3.3-5.1); Sodium 140 mmol/L (135-145); Total Protein 6.4 g/dL (6.5-8.0)
[2022-11-14] MEDS: Folic Acid 1 MG TABLET PO (08:06)
[2022-11-14] MEDS: methylPREDNISolone Sod Succ 125 MG/2 ML VIAL IVPUSH (08:06)
[2022-11-14] MEDS: Enoxaparin Sodium 40 MG/0.4 ML SYRINGE SUBCUT (08:07)
[2022-11-14 09:10] LABS: Folate 16.2 ng/mL (> or = 4.0)
[2022-11-14 12:24] LABS: Glucose, Whole Blood 320 mg/dL (60-115)
--- NOTE | 2022-11-14 12:33 | P.PNIM_ITS ---
Subjective Subjective Date of Service: 11/14/22 Interval History: cc: dark urine, jaundice interval history:weakness Physical Exam Vital Signs: Vital Signs: Last Vital Signs Temp 99.3 F 11/14/22 07:12 Pulse 111 H 11/14/22 09:39 Resp 16 11/14/22 07:12 BP 194/77 H 11/14/22 09:39 Pulse Ox 97 11/14/22 07:12 O2 Del Method 11/14/22 07:12 BMI result Body Mass Index 36.3 General: AO X 3, no acute distress, jaundiced Resp: CTA bilateral, no accessory muscles used CVS: S1,S2,RRR GI: soft, non tender, non distended Neuro: motor grossly intact, alert Psych: appropriate affect, appropriate insight Objective Data Active Medications Acetaminophen (Acetaminophen 325 Mg Tablet) 650 mg PO Q6H PRN PRN Reason: Pain, Mild (Pain Scale 1-3) Dextrose (Dextrose 50 % 25 Gm/50 Ml Syringe) 25 gm IVPUSH Q15M PRN; Protocol PRN Reason: per Hypoglycemia Standing Ord. Enoxaparin Sodium (Enoxaparin Sodium 40 Mg/0.4 Ml Syringe) 40 mg SUBCUT Q24H [facility] Last Admin: 11/14/22 08:07 Dose: 40 mg Documented By: TREVOR Folic Acid (Folic Acid 1 Mg Tablet) 1 mg PO DAILY [facility] Last Admin: 11/14/22 08:30 Dose: Not Given Documented By: TREVOR Non-Admin Reason: med already given this morning Glucose (Glucose Gel 15 Gm Gel..Gram.) 15 gm PO Q15M PRN; Protocol PRN Reason: per Hypoglycemia Standing Ord. Insulin Human Lispro (Insulin Lispro 100 Unit/Ml 3 Ml Vial) 0 unit SUBCUT QIDACHS [facility]; Protocol Last Admin: 11/14/22 07:23 Dose: 2 unit Documented By: TREVOR Prednisone (Prednisone 10 Mg Tablet) 50 mg PO BID [facility] Sodium Chloride (0.9 % Sodium Chloride Flush 3 Ml Syringe) 3 ml IVFLUSH QSHIFT [facility] Last Admin: 11/14/22 07:24 Dose: 3 ml Documented By: TREVOR Labs CBC & Chem 7: 11/14/22 06:42 11/14/22 06:42 Labs: Laboratory Results - last 24 hr 11/13/22 11/13/22 11/13/22 20:05 20:05 20:05 MCV MCH MCHC RDW Plt Count MPV Immature Gran % (Auto) Neut % (Auto) Lymph % (Auto) [place] % (Auto) Eos % (Auto) Baso % (Auto) Lymph # (Auto) [place] # (Auto) Eos # (Auto) Baso # (Auto) Abs Immat Gran (auto) Absolute Neuts (auto) Absolute Nucleated RBC Nucleated RBC % (auto) Absolute Retic Percent Retic Immature Retic Fraction Retic Hgb Equivalent PT 12.7 INR 1.1 APTT 24.2 L Anion Gap Estim Creat Clear Calc Estimated GFR POC Glucose Random Glucose Calcium Total Bilirubin Direct Bilirubin AST ALT Alkaline Phosphatase Ammonia Lactate Dehydrogenase Total Protein Albumin Vitamin B12 Folate Stool Occult Blood Acetaminophen COVID-19 (JL) COVID-19 Clin Com Blood Type O Positive Antibody Screen POSITIVE FRANCESCA, Polyspecific POSITIVE A Positive FRANCESCA Work-up IgG=Pos [id number] A Crossmatch See Detail 11/13/22 11/13/22 11/13/22 20:06 20:06 20:06 MCV MCH MCHC RDW Plt Count MPV Immature Gran % (Auto) Neut % (Auto) Lymph % (Auto) [place] % (Auto) Eos % (Auto) Baso % (Auto) Lymph # (Auto) [place] # (Auto) Eos # (Auto) Baso # (Auto) Abs Immat Gran (auto) Absolute Neuts (auto) Absolute Nucleated RBC Nucleated RBC % (auto) Absolute Retic Percent Retic Immature Retic Fraction Retic Hgb Equivalent PT INR APTT Anion Gap Estim Creat Clear Calc Estimated GFR POC Glucose Random Glucose Calcium Total Bilirubin Direct Bilirubin 0.7 H AST ALT Alkaline Phosphatase Ammonia 25 Lactate Dehydrogenase 830 H Total Protein Albumin Vitamin B12 470 Folate 16.2 Stool Occult Blood Acetaminophen < 1 COVID-19 (JL) COVID-19 Clin Com Blood Type Antibody Screen FRANCESCA, Polyspecific Positive FRANCESCA Work-up Crossmatch 11/13/22 11/14/22 11/14/22 22:19 00:15 06:05 MCV MCH MCHC RDW Plt Count MPV Immature Gran % (Auto) Neut % (Auto) Lymph % (Auto) [place] % (Auto) Eos % (Auto) Baso % (Auto) Lymph # (Auto) [place] # (Auto) Eos # (Auto) Baso # (Auto) Abs Immat Gran (auto) Absolute Neuts (auto) Absolute Nucleated RBC Nucleated RBC % (auto) Absolute Retic 0.244 H Percent Retic 14.9 H Immature Retic Fraction 37.9 H Retic Hgb Equivalent 41.2 H PT INR APTT Anion Gap Estim Creat Clear Calc Estimated GFR POC Glucose Random Glucose Calcium Total Bilirubin Direct Bilirubin AST ALT Alkaline Phosphatase Ammonia Lactate Dehydrogenase Total Protein Albumin Vitamin B12 Folate Stool Occult Blood NEGATIVE Acetaminophen COVID-19 (JL) Negative COVID-19 Clin Com See Note Blood Type Antibody Screen FRANCESCA, Polyspecific Positive FRANCESCA Work-up Crossmatch 11/14/22 11/14/22 11/14/22 06:42 06:42 07:00 MCV 104.6 H MCH 35.5 H MCHC 34.0 RDW 21.2 H Plt Count 174 MPV 9.9 Immature Gran % (Auto) 1.4 H Neut % (Auto) 70.6 Lymph % (Auto) 20.1 [place] % (Auto) 4.8 Eos % (Auto) 2.6 Baso % (Auto) 0.5 Lymph # (Auto) 1.7 [place] # (Auto) 0.4 Eos # (Auto) 0.2 Baso # (Auto) 0.0 Abs Immat Gran (auto) 0.12 H Absolute Neuts (auto) 5.9 Absolute Nucleated RBC 0.070 H Nucleated RBC % (auto) 0.8 H Absolute Retic Percent Retic Immature Retic Fraction Retic Hgb Equivalent PT INR APTT Anion Gap 12 Estim Creat Clear Calc 90.1 Estimated GFR > 60 POC Glucose 191 H Random Glucose 174 H D Calcium 8.9 Total Bilirubin 5.4 H Direct Bilirubin AST 45 H D ALT 16 Alkaline Phosphatase 56 Ammonia Lactate Dehydrogenase Total Protein 6.4 L Albumin 4.0 Vitamin B12 Folate Stool Occult Blood Acetaminophen COVID-19 (JL) COVID-19 Clin Com Blood Type Antibody Screen FRANCESCA, Polyspecific Positive FRANCESCA Work-up Crossmatch 11/14/22 12:15 MCV MCH MCHC RDW Plt Count MPV Immature Gran % (Auto) Neut % (Auto) Lymph % (Auto) [place] % (Auto) Eos % (Auto) Baso % (Auto) Lymph # (Auto) [place] # (Auto) Eos # (Auto) Baso # (Auto) Abs Immat Gran (auto) Absolute Neuts (auto) Absolute Nucleated RBC Nucleated RBC % (auto) Absolute Retic Percent Retic Immature Retic Fraction Retic Hgb Equivalent PT INR APTT Anion Gap Estim Creat Clear Calc Estimated GFR POC Glucose 320 H Random Glucose Calcium Total Bilirubin Direct Bilirubin AST ALT Alkaline Phosphatase Ammonia Lactate Dehydrogenase Total Protein Albumin Vitamin B12 Folate Stool Occult Blood Acetaminophen COVID-19 (JL) COVID-19 Clin Com Blood Type Antibody Screen FRANCESCA, Polyspecific Positive FRANCESCA Work-up Crossmatch Assessment and Plan (1) Acute hemolytic anemia: Status: Acute Plan 67M pmh DM, obesity presented with dark urine, found to have jane positive hemolytic anemia. severe hemolytic anemia hgb 5.4 jane positive steroids, folic acid hematology transfuse 2 units, monitor DM in[place], pocs hold metformin obesity weight loss recommended dvt prophylaxis - lovenox full code reason for continued hospitalization:severe anemia Time Spent With Patient Time: Total time managing care of this patient today ____ minutes. Quality Stroke Does the patient have a stroke diagnosis?: No VTE Prior VTE?: No VTE Risk Level:: Medical - moderate - high VTE Device Contraindication: N/A - Device Ordered VTE Drug Contraindication: Treatment Not Indicated
--- NOTE | 2022-11-14 14:34 | PC.NURSE ---
report to overflow RN
--- NOTE | 2022-11-14 14:35 | PC.NURSE ---
Call from lab that blood is read, initial call given to Isidro RN not notified until second call.
--- NOTE | 2022-11-14 19:40 | PC.NURSE ---
assumed care of patient at 1900 - blood ready. PCT to go grape picker blood in lab @1935. will transfuse momentarily . patient comfortable on stretcher, hall monitor placed on pt, wearing 2L O2 NC for suggested sleep apnea per RT. patient states makes him feel more comfortable, slightly less sob.
--- NOTE | 2022-11-14 20:10 | PC.NURSE ---
patient tolerating blood transfusion well. vital signs stable after 15 min - no signs of transfusion reaction. patient resting comfortably. will continue to monitor closely
[2022-11-14 20:35] LABS: Glucose, Whole Blood 378 mg/dL (60-115)
[2022-11-14 20:35] LABS: Glucose, Whole Blood 346 mg/dL (60-115)
--- NOTE | 2022-11-14 21:17 | MHC.EDTECH ---
pt is resting comfortable, he has a urinal to void, vitals were taken also his POC was done ,he is all set
[2022-11-15 01:45] VITALS: BP 132/49; PULSE 66; RESP 16; TEMP 36.9
[2022-11-15 05:11] LABS: Hematocrit 21.2 % (42.0-52.0); Hemoglobin 7.2 g/dl (14.0-18.0); Mean Platelet Volume 10.5 fL (9.4-12.4); Platelet Count 187 X10*3/uL (160-400); Red Blood Count 2.12 X10*6/uL (4.60-5.80); Red Cell Distribution Width 20.8 % (11.0-16.0); White Blood Count 11.5 X10*3/uL (4.8-10.8)
[2022-11-15 05:13] LABS: NRBC Pct Auto 1.5 /100WBC (0.0-0.2)
[2022-11-15 05:29] LABS: Alanine Aminotransferase 14 U/L (0-40); Albumin Level 4.1 g/dL (3.5-5.0); Alkaline Phosphatase 63 U/L (39-117); Anion Gap 14 (12-20); Aspartate Amino Transferase 37 U/L (5-37); Bilirubin Direct 0.4 mg/dL (0.0-0.5); Bilirubin Total 4.4 mg/dL (0.0-1.0); Blood Urea Nitrogen 30 mg/dL (9-16); Calcium 9.1 mg/dL (8.4-10.2); Carbon Dioxide 22 mmol/L (22-29); Chloride 109 mmol/L (96-108); Creatinine Clr Calc Pharmacy 83.1; Estimated Glomerular Filt Rate > 60; Glucose Fasting 179 mg/dL (60-99); Potassium 4.2 mmol/L (3.3-5.1); Sodium 141 mmol/L (135-145); Total Protein 6.5 g/dL (6.5-8.0)
--- NOTE | 2022-11-15 06:40 | PC.NURSE ---
Patient received 2 units of PRBC's. Tolerated well, lab work pending from this am.
[2022-11-15 07:21] LABS: Glucose, Whole Blood 159 mg/dL (60-115)
[2022-11-15 08:29] VITALS: BP 138/52; PULSE 70; RESP 14; TEMP 36.2; O2SAT 98
[2022-11-15] MEDS: Insulin Lispro 100 UNIT/ML 3 ML VIAL SUBCUT ×4 (09:35→21:03)
[2022-11-15] MEDS: Folic Acid 1 MG TABLET PO (09:35)
[2022-11-15] MEDS: predniSONE 10 MG TABLET 50 MG PO ×2 (09:35→21:02)
[2022-11-15] MEDS: Enoxaparin Sodium 40 MG/0.4 ML SYRINGE SUBCUT (09:37)
[2022-11-15] MEDS: 0.9 % Sodium Chloride Flush 3 ML SYRINGE IVFLUSH ×3 (09:37→23:14)
[2022-11-15 09:41] LABS: HBS Num1 0.01 mIU/mL (0-7.99); HBc Num1 0.05 S/CO (0.00-0.79); Hepatitis A Antibody IgM 0.31 Index (0-0.79); Hepatitis B Core Antibody Nonreactive (Nonreactive); Hepatitis B Surface Antigen Negative (Negative); ~HepC Num1 0.59 S/CO (0.00-0.79); ~Hepatitis A Antibody IgM Nonreactive (Nonreactive); ~Hepatitis B Surface Antibody NONREACTIVE (Nonreactive); ~Hepatitis C Antibody Nonreactive (Nonreactive)
--- NOTE | 2022-11-15 09:47 | MHC.EDTECH ---
Pt up to ambulate, provided new linens
--- NOTE | 2022-11-15 10:34 | HO.PM.IMPN ---
Subjective Subjective Date of Service: 11/15/22 Interval History: cc: dark urine, jaundice interval history:weakness improving after transfusion Physical Exam Vital Signs: Vital Signs: Last Vital Signs Temp 97.2 F 11/15/22 08:29 Pulse 70 11/15/22 08:29 Resp 14 11/15/22 08:29 BP 138/52 L 11/15/22 08:29 Pulse Ox 98 11/15/22 08:29 O2 Del Method 11/15/22 08:29 O2 Flow Rate 2 11/14/22 21:22 BMI result Body Mass Index 36.3 General: AO X 3, no acute distress, jaundiced Resp: CTA bilateral, no accessory muscles used CVS: S1,S2,RRR GI: soft, non tender, non distended Neuro: motor grossly intact, alert Psych: appropriate affect, appropriate insight Objective Data Active Medications Acetaminophen (Acetaminophen 325 Mg Tablet) 650 mg PO Q6H PRN PRN Reason: Pain, Mild (Pain Scale 1-3) Dextrose (Dextrose 50 % 25 Gm/50 Ml Syringe) 25 gm IVPUSH Q15M PRN; Protocol PRN Reason: per Hypoglycemia Standing Ord. Enoxaparin Sodium (Enoxaparin Sodium 40 Mg/0.4 Ml Syringe) 40 mg SUBCUT Q24H [facility] Last Admin: 11/15/22 09:37 Dose: 40 mg Documented By: ALLY Folic Acid (Folic Acid 1 Mg Tablet) 1 mg PO DAILY [facility] Last Admin: 11/15/22 09:35 Dose: 1 mg Documented By: ALLY Glucose (Glucose Gel 15 Gm Gel..Gram.) 15 gm PO Q15M PRN; Protocol PRN Reason: per Hypoglycemia Standing Ord. Insulin Human Lispro (Insulin Lispro 100 Unit/Ml 3 Ml Vial) 0 unit SUBCUT QIDACHS [facility]; Protocol Last Admin: 11/15/22 09:35 Dose: 2 unit Documented By: ALLY Prednisone (Prednisone 10 Mg Tablet) 50 mg PO BID [facility] Last Admin: 11/15/22 09:35 Dose: 50 mg Documented By: ALLY Sodium Chloride (0.9 % Sodium Chloride Flush 3 Ml Syringe) 3 ml IVFLUSH QSHIFT [facility] Last Admin: 11/15/22 09:37 Dose: 3 ml Documented By: ALLY Labs 11/15/22 04:27 11/15/22 04:27 Labs: Laboratory Results - last 24 hr 11/13/22 11/13/22 11/14/22 20:05 20:06 09:30 MCV MCH MCHC RDW Plt Count MPV Absolute Nucleated RBC Nucleated RBC % (auto) Anion Gap Estim Creat Clear Calc Estimated GFR POC Glucose Fasting Glucose Calcium Total Bilirubin Direct Bilirubin AST ALT Alkaline Phosphatase Total Protein Albumin Hepatitis A IgM Ab Nonreactive Hep Bs Antigen Negative Hep Bs Antibody NONREACTIVE Hep B Core Total Ab Nonreactive Hepatitis C Ab (EIA) Nonreactive Blood Type Antibody Screen Antibody Identification Inconclusive Crossmatch See Detail Enhanced Crossmatch Blood Bank Comment Technical Reference Report See note 11/14/22 11/14/22 11/14/22 12:15 15:58 18:04 MCV MCH MCHC RDW Plt Count MPV Absolute Nucleated RBC Nucleated RBC % (auto) Anion Gap Estim Creat Clear Calc Estimated GFR POC Glucose 320 H 346 H Fasting Glucose Calcium Total Bilirubin Direct Bilirubin AST ALT Alkaline Phosphatase Total Protein Albumin Hepatitis A IgM Ab Hep Bs Antigen Hep Bs Antibody Hep B Core Total Ab Hepatitis C Ab (EIA) Blood Type O Positive Antibody Screen POSITIVE Antibody Identification Warm Auto Antibody Crossmatch Enhanced Crossmatch See Detail Blood Bank Comment Reference Report 11/14/22 11/15/22 11/15/22 20:27 04:27 04:27 MCV 100.0 H MCH 34.0 H MCHC 34.0 RDW 20.8 H Plt Count 187 MPV 10.5 Absolute Nucleated RBC 0.170 H Nucleated RBC % (auto) 1.5 H Anion Gap 14 Estim Creat Clear Calc 83.1 Estimated GFR > 60 POC Glucose 378 H* Fasting Glucose 179 H Calcium 9.1 Total Bilirubin 4.4 H Direct Bilirubin 0.4 AST 37 ALT 14 Alkaline Phosphatase 63 Total Protein 6.5 Albumin 4.1 Hepatitis A IgM Ab Hep Bs Antigen Hep Bs Antibody Hep B Core Total Ab Hepatitis C Ab (EIA) Blood Type Antibody Screen Antibody Identification Crossmatch Enhanced Crossmatch Blood Bank Comment Reference Report 11/15/22 07:13 MCV MCH MCHC RDW Plt Count MPV Absolute Nucleated RBC Nucleated RBC % (auto) Anion Gap Estim Creat Clear Calc Estimated GFR POC Glucose 159 H Fasting Glucose Calcium Total Bilirubin Direct Bilirubin AST ALT Alkaline Phosphatase Total Protein Albumin Hepatitis A IgM Ab Hep Bs Antigen Hep Bs Antibody Hep B Core Total Ab Hepatitis C Ab (EIA) Blood Type Antibody Screen Antibody Identification Crossmatch Enhanced Crossmatch Blood Bank Comment Reference Report Assessment and Plan (1) Acute hemolytic anemia: Status: Acute Plan 67M pmh DM, obesity presented with dark urine, found to have jane positive hemolytic anemia. severe hemolytic anemia jane positive (warm) steroids, folic acid transfused 2 units, hgb improved from 5.4 to 7.2 follow up h and h hematology following DM insulin, pocs hold metformin obesity weight loss recommended dvt prophylaxis - lovenox full code reason for continued hospitalization:severe anemia Time Spent With Patient Time: Total time managing care of this patient today ____ minutes. Quality Stroke Does the patient have a stroke diagnosis?: No VTE Prior VTE?: No VTE Risk Level:: Medical - moderate - high VTE Device Contraindication: N/A - Device Ordered VTE Drug Contraindication: Treatment Not Indicated
[2022-11-15 11:50] VITALS: BP 151/60; PULSE 79; RESP 17; TEMP 36.8; O2SAT 100
[2022-11-15 11:55] VITALS: BMI 37.0
[2022-11-15 12:03] LABS: Glucose, Whole Blood 280 mg/dL (60-115)
--- NOTE | 2022-11-15 13:54 | MHC.CM.PN ---
CM met with Patient at bedside and addressed IMM with him, original was given to Patient and a copy has been placed on the chart. 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 Home/self care is the goal and CM has initiated and will follow for dc planning. PCP/DENTURE TECHNICIAN is Randell Robb and Patient has received Realitycheck/Usarium vax x3.
[2022-11-15 15:25] VITALS: BP 138/64; PULSE 72; RESP 17; TEMP 36.7; O2SAT 100
[2022-11-15 15:42] LABS: Glucose, Whole Blood 386 mg/dL (60-115)
[2022-11-15] MEDS: polyethylene glycoL 3350 17 GM POWD.PACK PO (17:16)
--- NOTE | 2022-11-15 19:10 | PC.NURSE ---
Pt alert and oriented x4. Pt admitted to rm 470 with Hemolytic Anemia. Pt is also a diabetic and POC at dinner was 386. notified.10 units insulin given with good effect.Pt is indepedent OOB.
[2022-11-15 20:00] VITALS: BP 122/68; PULSE 78; RESP 18; TEMP 37.2; O2SAT 98
[2022-11-15 20:39] LABS: Glucose, Whole Blood 380 mg/dL (60-115)
[2022-11-15] MEDS: Insulin Glargine,Hum.rec.anlog 100 UNIT/ML 10 ML VIAL 15 UNIT SUBCUT (21:02)
[2022-11-16] VITALS (9 sets, daily range): BP systolic 127–158; BP diastolic 58–78; PULSE 54–72; RESP 16–20; TEMP 36.6–37.4; O2SAT 96–99
[2022-11-16 06:24] LABS: Mean Corpuscular HGB Conc 33.2 g/dl (31.0-36.0); Mean Corpuscular Hemoglobin 34.4 pg (27.0-33.0); Mean Corpuscular Volume 103.6 fL (80.0-98.0); Mean Platelet Volume 10.4 fL (9.4-12.4); NRBC Pct Auto 0.9 /100WBC (0.0-0.2); Platelet Count 190 X10*3/uL (160-400); Red Blood Count 1.92 X10*6/uL (4.60-5.80); Red Cell Distribution Width 22.7 % (11.0-16.0); White Blood Count 11.5 X10*3/uL (4.8-10.8)
[2022-11-16 06:35] LABS: Alanine Aminotransferase 14 U/L (0-40); Alkaline Phosphatase 66 U/L (39-117); Anion Gap 12 (12-20); Aspartate Amino Transferase 32 U/L (5-37); Bilirubin Direct 0.5 mg/dL (0.0-0.5); Bilirubin Total 4.3 mg/dL (0.0-1.0); Blood Urea Nitrogen 32 mg/dL (9-16); Calcium 9.1 mg/dL (8.4-10.2); Carbon Dioxide 24 mmol/L (22-29); Chloride 106 mmol/L (96-108); Creatinine Clr Calc Pharmacy 86.2; Estimated Glomerular Filt Rate > 60; Glucose Fasting 238 mg/dL (60-99); Potassium 4.4 mmol/L (3.3-5.1); Sodium 138 mmol/L (135-145); Total Protein 6.5 g/dL (6.5-8.0)
[2022-11-16 06:39] LABS: Hemoglobin 6.6 g/dl (14.0-18.0)
[2022-11-16 06:40] LABS: Hematocrit 19.9 % (42.0-52.0)
[2022-11-16 07:54] LABS: Glucose, Whole Blood 213 mg/dL (60-115)
[2022-11-16] MEDS: Enoxaparin Sodium 40 MG/0.4 ML SYRINGE SUBCUT (08:07)
[2022-11-16] MEDS: Insulin Lispro 100 UNIT/ML 3 ML VIAL SUBCUT ×7 (08:08→20:14)
[2022-11-16] MEDS: predniSONE 10 MG TABLET 50 MG PO ×2 (08:09→20:14)
[2022-11-16] MEDS: Insulin Glargine,Hum.rec.anlog 100 UNIT/ML 10 ML VIAL 15 UNIT SUBCUT ×2 (08:09→20:14)
[2022-11-16] MEDS: Folic Acid 1 MG TABLET PO (08:09)
[2022-11-16] MEDS: 0.9 % Sodium Chloride Flush 3 ML SYRINGE IVFLUSH (08:10)
--- NOTE | 2022-11-16 10:58 | HO.PM.IMPN ---
Subjective Subjective Date of Service: 11/16/22 Interval History: cc: dark urine, jaundice interval history:weakness improving after transfusion Physical Exam Vital Signs: Vital Signs: Last Vital Signs Temp 97.9 F 11/16/22 07:53 Pulse 60 11/16/22 07:53 Resp 18 11/16/22 07:53 BP 142/63 H 11/16/22 07:53 Pulse Ox 98 11/16/22 07:53 O2 Del Method 11/16/22 07:53 O2 Flow Rate 2 11/14/22 21:22 BMI result Body Mass Index 37.0 General: AO X 3, no acute distress, jaundiced improved Resp: CTA bilateral, no accessory muscles used CVS: S1,S2,RRR GI: soft, non tender, non distended Neuro: motor grossly intact, alert Psych: appropriate affect, appropriate insight Objective Data Active Medications Acetaminophen (Acetaminophen 325 Mg Tablet) 650 mg PO Q6H PRN PRN Reason: Pain, Mild (Pain Scale 1-3) Dextrose (Dextrose 50 % 25 Gm/50 Ml Syringe) 25 gm IVPUSH Q15M PRN; Protocol PRN Reason: per Hypoglycemia Standing Ord. Enoxaparin Sodium (Enoxaparin Sodium 40 Mg/0.4 Ml Syringe) 40 mg SUBCUT Q24H [facility] Last Admin: 11/16/22 08:07 Dose: 40 mg Documented By: QUINTIN Folic Acid (Folic Acid 1 Mg Tablet) 1 mg PO DAILY [facility] Last Admin: 11/16/22 08:09 Dose: 1 mg Documented By: QUINTIN Glucose (Glucose Gel 15 Gm Gel..Gram.) 15 gm PO Q15M PRN; Protocol PRN Reason: per Hypoglycemia Standing Ord. Insulin Glargine (Insulin Glargine,Hum.Rec.Anlog 100 Unit/Ml 10 Ml Vial) 15 unit SUBCUT BID [facility] Last Admin: 11/16/22 08:09 Dose: 15 unit Documented By: QUINTIN Insulin Human Lispro (Insulin Lispro 100 Unit/Ml 3 Ml Vial) 0 unit SUBCUT QIDAS [facility]; Protocol Last Admin: 11/16/22 08:08 Dose: 4 unit Documented By: QUINTIN Insulin Human Lispro (Insulin Lispro 100 Unit/Ml 3 Ml Vial) 5 unit SUBCUT QIDAS [facility] Omeprazole (Omeprazole 40 Mg Capsule.) 40 mg PO DAILY@0630 [facility] Prednisone (Prednisone 10 Mg Tablet) 50 mg PO BID [facility] Last Admin: 11/16/22 08:09 Dose: 50 mg Documented By: QUINTIN Sodium Chloride (0.9 % Sodium Chloride Flush 3 Ml Syringe) 3 ml IVFLUSH QSHIFT [facility] Last Admin: 11/16/22 08:10 Dose: 3 ml Documented By: QUINTIN Labs 11/16/22 06:02 11/16/22 06:02 Labs: Laboratory Results - last 24 hr 11/13/22 11/14/22 11/15/22 20:05 15:58 11:59 MCV MCH MCHC RDW Plt Count MPV Absolute Nucleated RBC Nucleated RBC % (auto) Anion Gap Estim Creat Clear Calc Estimated GFR POC Glucose 280 H Fasting Glucose Calcium Total Bilirubin Direct Bilirubin AST ALT Alkaline Phosphatase Total Protein Albumin Blood Type O Positive Antibody Screen POSITIVE Antibody Identification Warm Auto Antibody Warm Auto Antibody Crossmatch See Detail Enhanced Crossmatch See Detail 11/15/22 11/15/22 11/16/22 15:37 19:28 06:02 MCV 103.6 H MCH 34.4 H MCHC 33.2 RDW 22.7 H Plt Count 190 MPV 10.4 Absolute Nucleated RBC 0.100 H Nucleated RBC % (auto) 0.9 H Anion Gap Estim Creat Clear Calc Estimated GFR POC Glucose 386 H* 380 H* Fasting Glucose Calcium Total Bilirubin Direct Bilirubin AST ALT Alkaline Phosphatase Total Protein Albumin Blood Type Antibody Screen Antibody Identification Crossmatch Enhanced Crossmatch 11/16/22 11/16/22 06:02 07:50 MCV MCH MCHC RDW Plt Count MPV Absolute Nucleated RBC Nucleated RBC % (auto) Anion Gap 12 Estim Creat Clear Calc 86.2 Estimated GFR > 60 POC Glucose 213 H Fasting Glucose 238 H Calcium 9.1 Total Bilirubin 4.3 H Direct Bilirubin 0.5 AST 32 ALT 14 Alkaline Phosphatase 66 Total Protein 6.5 Albumin 4.0 Blood Type Antibody Screen Antibody Identification Crossmatch Enhanced Crossmatch Assessment and Plan (1) Acute hemolytic anemia: Status: Acute Plan 67M pmh DM, obesity presented with dark urine, found to have jane positive hemolytic anemia. severe hemolytic anemia jane positive (warm) steroids, folic acid, gi prophylaxis - ppi transfused 2 units, hgb improved from 5.4 to 7.2, now down to 6.6 will transfuse another follow up h and h hematology following DM insulin, pocs hold metformin obesity weight loss recommended dvt prophylaxis - lovenox full code reason for continued hospitalization:severe anemia Time Spent With Patient Time: Total time managing care of this patient today ____ minutes. Quality Stroke Does the patient have a stroke diagnosis?: No VTE Prior VTE?: No VTE Risk Level:: Medical - moderate - high VTE Device Contraindication: N/A - Device Ordered VTE Drug Contraindication: Treatment Not Indicated
[2022-11-16 11:17] LABS: Glucose, Whole Blood 252 mg/dL (60-115)
[2022-11-16] MEDS: Omeprazole 40 MG CAPSULE.DR PO (11:42)
[2022-11-16 15:33] LABS: Haptoglobin <8 mg/dL (43-212)
[2022-11-16 15:42] LABS: Glucose, Whole Blood 292 mg/dL (60-115)
[2022-11-16 19:20] LABS: Glucose, Whole Blood 326 mg/dL (60-115)
[2022-11-17] MEDS: 0.9 % Sodium Chloride Flush 3 ML SYRINGE IVFLUSH ×4 (00:16→23:37)
[2022-11-17] MEDS: Omeprazole 40 MG CAPSULE.DR PO (06:19)
[2022-11-17 06:20] LABS: Hematocrit 23.1 % (42.0-52.0); Hemoglobin 7.5 g/dl (14.0-18.0); Mean Corpuscular HGB Conc 32.5 g/dl (31.0-36.0); Mean Corpuscular Hemoglobin 33.6 pg (27.0-33.0); Mean Corpuscular Volume 103.6 fL (80.0-98.0); Mean Platelet Volume 9.9 fL (9.4-12.4); NRBC Pct Auto 1.1 /100WBC (0.0-0.2); Platelet Count 183 X10*3/uL (160-400); Red Blood Count 2.23 X10*6/uL (4.60-5.80); Red Cell Distribution Width 23.6 % (11.0-16.0); White Blood Count 10.5 X10*3/uL (4.8-10.8)
[2022-11-17 06:54] LABS: Alanine Aminotransferase 12 U/L (0-40); Alkaline Phosphatase 59 U/L (39-117); Anion Gap 14 (12-20); Aspartate Amino Transferase 25 U/L (5-37); Bilirubin Direct 0.6 mg/dL (0.0-0.5); Bilirubin Total 3.6 mg/dL (0.0-1.0); Blood Urea Nitrogen 32 mg/dL (9-16); Carbon Dioxide 25 mmol/L (22-29); Chloride 105 mmol/L (96-108); Creatinine Clr Calc Pharmacy 86.2; Estimated Glomerular Filt Rate > 60; Glucose Fasting 200 mg/dL (60-99); Lactate Dehydrogenase 691 U/L (118-273); Potassium 4.5 mmol/L (3.3-5.1); Sodium 139 mmol/L (135-145); Total Protein 6.4 g/dL (6.5-8.0)
[2022-11-17 07:17] VITALS: BP 139/66; PULSE 67; RESP 17; TEMP 36.6; O2SAT 99
[2022-11-17 08:03] LABS: Glucose, Whole Blood 216 mg/dL (60-115)
[2022-11-17] MEDS: Insulin Lispro 100 UNIT/ML 3 ML VIAL SUBCUT ×8 (08:38→19:49)
[2022-11-17] MEDS: Insulin Glargine,Hum.rec.anlog 100 UNIT/ML 10 ML VIAL 15 UNIT SUBCUT ×2 (08:38→19:49)
[2022-11-17] MEDS: Enoxaparin Sodium 40 MG/0.4 ML SYRINGE SUBCUT (08:40)
[2022-11-17] MEDS: predniSONE 10 MG TABLET 50 MG PO ×2 (08:40→19:48)
[2022-11-17] MEDS: Folic Acid 1 MG TABLET PO (08:40)
--- NOTE | 2022-11-17 09:22 | HO.PM.IMPN ---
Subjective Subjective Date of Service: 11/17/22 Interval History: cc: dark urine, jaundice interval history:weakness improving after transfusion Physical Exam Vital Signs: Vital Signs: Last Vital Signs Temp 97.9 F 11/17/22 07:17 Pulse 67 11/17/22 07:17 Resp 17 11/17/22 07:17 BP 139/66 11/17/22 07:17 Pulse Ox 99 11/17/22 07:17 O2 Del Method 11/17/22 07:17 O2 Flow Rate 2 11/14/22 21:22 BMI result Body Mass Index 37.0 General: AO X 3, no acute distress, jaundiced improved Resp: CTA bilateral, no accessory muscles used CVS: S1,S2,RRR GI: soft, non tender, non distended Neuro: motor grossly intact, alert Psych: appropriate affect, appropriate insight Objective Data Active Medications Acetaminophen (Acetaminophen 325 Mg Tablet) 650 mg PO Q6H PRN PRN Reason: Pain, Mild (Pain Scale 1-3) Dextrose (Dextrose 50 % 25 Gm/50 Ml Syringe) 25 gm IVPUSH Q15M PRN; Protocol PRN Reason: per Hypoglycemia Standing Ord. Enoxaparin Sodium (Enoxaparin Sodium 40 Mg/0.4 Ml Syringe) 40 mg SUBCUT Q24H [facility] Last Admin: 11/17/22 08:40 Dose: 40 mg Documented By: QUINTIN Folic Acid (Folic Acid 1 Mg Tablet) 1 mg PO DAILY [facility] Last Admin: 11/17/22 08:40 Dose: 1 mg Documented By: QUINTIN Glucose (Glucose Gel 15 Gm Gel..Gram.) 15 gm PO Q15M PRN; Protocol PRN Reason: per Hypoglycemia Standing Ord. Insulin Glargine (Insulin Glargine,Hum.Rec.Anlog 100 Unit/Ml 10 Ml Vial) 15 unit SUBCUT BID [facility] Last Admin: 11/17/22 08:38 Dose: 15 unit Documented By: QUINTIN Insulin Human Lispro (Insulin Lispro 100 Unit/Ml 3 Ml Vial) 0 unit SUBCUT QIDACHS [facility]; Protocol Last Admin: 11/17/22 08:39 Dose: 4 unit Documented By: QUINTIN Insulin Human Lispro (Insulin Lispro 100 Unit/Ml 3 Ml Vial) 5 unit SUBCUT QIDACHS [facility] Last Admin: 11/17/22 08:39 Dose: 4 unit Documented By: QUINTIN Omeprazole (Omeprazole 40 Mg Capsule.Dr) 40 mg PO DAILY@0630 [facility] Last Admin: 11/17/22 06:19 Dose: 40 mg Documented By: HEMANTJ Prednisone (Prednisone 10 Mg Tablet) 50 mg PO BID [facility] Last Admin: 11/17/22 08:40 Dose: 50 mg Documented By: QUINTIN Sodium Chloride (0.9 % Sodium Chloride Flush 3 Ml Syringe) 3 ml IVFLUSH QSHIFT [facility] Last Admin: 11/17/22 08:41 Dose: 3 ml Documented By: QUINTIN Labs 11/17/22 06:09 11/17/22 06:09 Labs: Laboratory Results - last 24 hr 11/13/22 11/14/22 11/16/22 20:06 15:58 11:02 MCV MCH MCHC RDW Plt Count MPV Absolute Nucleated RBC Nucleated RBC % (auto) Haptoglobin <8 L Anion Gap Estim Creat Clear Calc Estimated GFR POC Glucose 252 H Fasting Glucose Calcium Total Bilirubin Direct Bilirubin AST ALT Alkaline Phosphatase Lactate Dehydrogenase Total Protein Albumin Blood Type O Positive Antibody Screen POSITIVE Antibody Identification Warm Auto Antibody Crossmatch (AHG) See Detail Enhanced Crossmatch See Detail 11/16/22 11/16/22 11/17/22 15:39 19:17 06:09 MCV 103.6 H MCH 33.6 H MCHC 32.5 RDW 23.6 H Plt Count 183 MPV 9.9 Absolute Nucleated RBC 0.120 H Nucleated RBC % (auto) 1.1 H Haptoglobin Anion Gap Estim Creat Clear Calc Estimated GFR POC Glucose 292 H 326 H Fasting Glucose Calcium Total Bilirubin Direct Bilirubin AST ALT Alkaline Phosphatase Lactate Dehydrogenase Total Protein Albumin Blood Type Antibody Screen Antibody Identification Crossmatch (AHG) Enhanced Crossmatch 11/17/22 11/17/22 06:09 07:20 MCV MCH MCHC RDW Plt Count MPV Absolute Nucleated RBC Nucleated RBC % (auto) Haptoglobin Anion Gap 14 Estim Creat Clear Calc 86.2 Estimated GFR > 60 POC Glucose 216 H Fasting Glucose 200 H Calcium 9.0 Total Bilirubin 3.6 H Direct Bilirubin 0.6 H AST 25 D ALT 12 Alkaline Phosphatase 59 Lactate Dehydrogenase 691 H Total Protein 6.4 L Albumin 4.0 Blood Type Antibody Screen Antibody Identification Crossmatch (AHG) Enhanced Crossmatch Assessment and Plan (1) Acute hemolytic anemia: Status: Acute Plan 67M pmh DM, obesity presented with dark urine, found to have jane positive hemolytic anemia. severe hemolytic anemia jane positive (warm) steroids, folic acid, gi prophylaxis - ppi transfused 3 units total, monitor hematology following DM insulin, pocs hold metformin HLD restart crestor obesity weight loss recommended dvt prophylaxis - lovenox full code reason for continued hospitalization:actively hemolyzing Time Spent With Patient Time: Total time managing care of this patient today ____ minutes. Quality Stroke Does the patient have a stroke diagnosis?: No VTE Prior VTE?: No VTE Risk Level:: Medical - moderate - high VTE Device Contraindication: N/A - Device Ordered VTE Drug Contraindication: Treatment Not Indicated
[2022-11-17 11:26] LABS: Glucose, Whole Blood 221 mg/dL (60-115)
[2022-11-17 12:00] VITALS: BP 134/63; PULSE 70; RESP 17; TEMP 36.4; O2SAT 99
[2022-11-17 16:00] VITALS: BP 131/62; PULSE 70; RESP 17; TEMP 37.2; O2SAT 98
[2022-11-17 16:38] LABS: Glucose, Whole Blood 316 mg/dL (60-115)
[2022-11-17 19:27] LABS: Glucose, Whole Blood 325 mg/dL (60-115)
[2022-11-17 19:45] VITALS: BP 144/64; PULSE 69; RESP 18; TEMP 36.9; O2SAT 96
[2022-11-17 23:55] VITALS: BP 163/76; PULSE 54; RESP 16; TEMP 36.8; O2SAT 97
[2022-11-18] MEDS: Omeprazole 40 MG CAPSULE.DR PO (06:25)
[2022-11-18 07:18] LABS: Hematocrit 23.1 % (42.0-52.0); Hemoglobin 7.5 g/dl (14.0-18.0); Mean Corpuscular HGB Conc 32.5 g/dl (31.0-36.0); Mean Corpuscular Hemoglobin 34.7 pg (27.0-33.0); Mean Corpuscular Volume 106.9 fL (80.0-98.0); Mean Platelet Volume 10.7 fL (9.4-12.4); Platelet Count 206 X10*3/uL (160-400); Red Blood Count 2.16 X10*6/uL (4.60-5.80); Red Cell Distribution Width 23.5 % (11.0-16.0); White Blood Count 9.9 X10*3/uL (4.8-10.8)
[2022-11-18 07:24] LABS: NRBC Pct Auto 1.4 /100WBC (0.0-0.2)
[2022-11-18 07:36] LABS: Alanine Aminotransferase 14 U/L (0-40); Alkaline Phosphatase 65 U/L (39-117); Anion Gap 13 (12-20); Aspartate Amino Transferase 25 U/L (5-37); Bilirubin Direct 0.6 mg/dL (0.0-0.5); Bilirubin Total 3.8 mg/dL (0.0-1.0); Blood Urea Nitrogen 31 mg/dL (9-16); Calcium 8.9 mg/dL (8.4-10.2); Carbon Dioxide 25 mmol/L (22-29); Chloride 106 mmol/L (96-108); Creatinine Clr Calc Pharmacy 86.2; Estimated Glomerular Filt Rate > 60; Glucose Fasting 187 mg/dL (60-99); Lactate Dehydrogenase 661 U/L (118-273); Potassium 4.4 mmol/L (3.3-5.1); Sodium 140 mmol/L (135-145); Total Protein 6.3 g/dL (6.5-8.0)
[2022-11-18 07:43] VITALS: BP 169/72; PULSE 59; RESP 20; TEMP 37.1; O2SAT 98
[2022-11-18 07:51] LABS: Glucose, Whole Blood 179 mg/dL (60-115)
[2022-11-18] MEDS: Insulin Lispro 100 UNIT/ML 3 ML VIAL SUBCUT ×4 (08:26→11:49)
[2022-11-18] MEDS: Insulin Glargine,Hum.rec.anlog 100 UNIT/ML 10 ML VIAL 15 UNIT SUBCUT (08:27)
[2022-11-18] MEDS: Enoxaparin Sodium 40 MG/0.4 ML SYRINGE SUBCUT (08:27)
[2022-11-18] MEDS: 0.9 % Sodium Chloride Flush 3 ML SYRINGE IVFLUSH (08:28)
[2022-11-18] MEDS: Folic Acid 1 MG TABLET PO (08:28)
[2022-11-18] MEDS: predniSONE 10 MG TABLET 50 MG PO (08:28)
--- NOTE | 2022-11-18 10:17 | PM.DS ---
DS: Providers Provider Date of Service: 11/18/22 Date of admission: 11/13/22 22:40 Primary care physician: OMAR Schmitz- Consults: 11/13/22 23:19 Consult to Hematology / Oncology Routine Consulting Provider: Colleen Hassan Reason for consultation: ?hemolytic anemia DS: Diagnosis Discharge Diagnosis (1) Acute hemolytic anemia: Status: Acute DS: Summary Hospital Course Hospital Course: from initial hpi: Chief Complaint: Fatigue This is a 67-year-old male with pertinent history of fcm-asvqpsg-yezcbfsox diabetes mellitus, mixed hyperlipidemia presents to the emergency department evaluation of elevated bilirubin and low hemoglobin.? Patient states since November 10 he has noticed darkening of his urine and yellowish discoloration of his skin.? Patient also has had dyspnea with exertion.? Previously used to walk 2 miles but lately has not been able to walk to the bathroom without being short of breath.? He denies fever, chills, chest discomfort, palpitations, melena, hematochezia, hematemesis, hemoptysis, abdominal pain, nausea, vomiting, diarrhea.? No similar complaints in the past.? Admits to drinking 2-3 alcoholic drinks a week has been drinking for the last 40 years.? Denies use of Tylenol.? Patient states initial colonoscopy showed polyps but follow-up colonoscopy about 5 years ago was negative. hospital course: patient was admitted for severe hemolytic anemia, Jose positive found to have warm antibody. He was transfused a total 3 units during hospitalization and hemoglobin stabilized at 7.5. He was started on prednisone 50 mg b.i.d. and folic acid and omeprazole for GI prophylaxis. His symptoms significantly improved. He was seen by Hematology recommending continue prednisone and outpatient follow-up. His diabetes was complicated by hyperglycemia likely due to prednisone. He was given basal bolus insulin. On discharge he will continue his home metformin and be started on basal insulin. First hyperlipidemia was continued on Crestor. For obesity weight loss is recommended. Patient is feeling better will be discharged home. He will follow-up with Hematology. Time Spent with Patient Time attestation: Total time managing care of this patient today ____ minutes. Discharge coordination time: Greater than 30 minutes Quality: Safe Use of Opioids Does Pt have an Active Cancer Diagnosis on the Problem List?: No Quality: Stroke Does the patient have a stroke diagnosis?: No Physical Exam Vital Signs: Vital Signs: Last Vital Signs Temp 98.8 F 11/18/22 07:43 Pulse 59 11/18/22 07:43 Resp 20 11/18/22 07:43 BP 169/72 H 11/18/22 07:43 Pulse Ox 98 11/18/22 07:43 O2 Del Method 11/18/22 07:43 O2 Flow Rate 2 11/14/22 21:22 BMI result Body Mass Index 37.0 General: AO X 3, no acute distress Resp: CTA bilateral, no accessory muscles used CVS: S1,S2,RRR GI: soft, non tender, non distended Neuro: motor grossly intact, alert Psych: appropriate affect, appropriate insight DS: Data Data Completed and Pending Labs on day of discharge: Laboratory Results - last 24 hr 11/17/22 11/17/22 11/17/22 11:22 16:00 19:23 WBC RBC Hgb Hct MCV MCH MCHC RDW Plt Count MPV Absolute Nucleated RBC Nucleated RBC % (auto) Sodium Potassium Chloride Carbon Dioxide Anion Gap BUN Creatinine Estim Creat Clear Calc Estimated GFR POC Glucose 221 H 316 H 325 H Fasting Glucose Calcium Total Bilirubin Direct Bilirubin AST ALT Alkaline Phosphatase Lactate Dehydrogenase Total Protein Albumin 11/18/22 11/18/22 11/18/22 06:34 06:34 07:45 WBC 9.9 RBC 2.16 L Hgb 7.5 L Hct 23.1 L MCV 106.9 H MCH 34.7 H MCHC 32.5 RDW 23.5 H Plt Count 206 MPV 10.7 Absolute Nucleated RBC 0.140 H Nucleated RBC % (auto) 1.4 H Sodium 140 Potassium 4.4 Chloride 106 Carbon Dioxide 25 Anion Gap 13 BUN 31 H Creatinine 1.13 Estim Creat Clear Calc 86.2 Estimated GFR > 60 POC Glucose 179 H Fasting Glucose 187 H Calcium 8.9 Total Bilirubin 3.8 H Direct Bilirubin 0.6 H AST 25 ALT 14 Alkaline Phosphatase 65 Lactate Dehydrogenase 661 H Total Protein 6.3 L Albumin 4.0 Discharge Plan Discharge Anticipated Discharge Date/Time: 11/18/22 10:09 Patient Disposition: Home, Self-Care Discharge Diagnosis: hemolytic anemia Referrals: Colleen Hassan MD [Physician] - 1 Week (hemolytic anemia) Randell Robb FNP-BC [Primary Care Provider] - 1 Week Discharge Medications: New insulin glargine [Lantus U-100 Insulin] 100 unit/mL Solution 30 unit subcut DAILY Qty: 10 0RF Rx Instructions: while on prednisone omeprazole 40 mg Capsule,Delayed Release(Dr/Ec) 40 mg PO DAILY@0630 Qty: 30 0RF prednisone 50 mg tablet 50 mg PO BID Qty: 60 0RF Continued multivitamin with iron Tablet 1 tab PO DAILY 90 Days Qty: 90 0RF aspirin 81 mg tablet,chewable 81 mg PO DAILY 90 Days Qty: 90 0RF sildenafil 25 mg tablet 25 mg PO DAILY PRN (Reason: sexual activity) 30 Days Qty: 10 0RF Rx Instructions: administer 30 minutes to 4 hours before activity metformin 500 mg tablet 500 mg PO DAILY@1700 rosuvastatin [Crestor] 10 mg tablet 10 mg PO BEDTIME Discharge Orders: Discharge Order (Routine); Ordered 11/18/22 Ordered By: Robbie Barrios Diet: Advance to usual diet Activity on Discharge: As tolerated Stand Alone Forms: Patient Portal Discharge page Care Plan Goals: recovery Health Concerns: hemolytic anemia Plan of Treatment: prednisone 50mg bid for now, follow up with hematology Assessment: see above
[2022-11-18 10:51] VITALS: BP 149/68; PULSE 71; RESP 20; TEMP 37.1; O2SAT 97
[2022-11-18 10:56] LABS: Glucose, Whole Blood 270 mg/dL (60-115)
--- NOTE | 2022-11-18 11:15 | MHC.CM.PN ---
Patient has been medically cleared for dc to home today, self care. CM met with Patient at bedside and addressed IMM with him, providing him with the original and a copy was placed on the chart. Patient is aware of and in agreement with the dc plan.
--- NOTE | 2022-11-18 14:13 | PC.NURSE ---
pt A&o, accompanied by hosp staff via wheelchair due to pt request, to front entrance to be picked up by family member. IV out, pt was not on tele monitor. pt home med returned to pt. discharge instruction given to PT and pt verbalized understanding.
== END 2022-11-18 14:17 | disposition home or self-care (01) | DRG 810 ==
LOC: HO.ED 20:02 → HO.EDOVER 22:43 → HO.IMC 11-15 09:28
PROVIDERS: Physician Assistant; Admitting Provider Student in an Organized Health Care Education/Training Program; Emergency Provider Internal Medicine; PCP Nurse Practitioner Family; Visit Provider Internal Medicine
DX: D59.9 Acquired hemolytic anemia, unspecified (principal); E78.2 Mixed hyperlipidemia; E11.65 Type 2 diabetes mellitus with hyperglycemia; E66.9 Obesity, unspecified; E78.5 Hyperlipidemia, unspecified; E80.6 Other disorders of bilirubin metabolism; Z68.37 Body mass index [BMI] 37.0-37.9, adult; Z20.822 Contact with and (suspected) exposure to COVID-19; Z87.891 Personal history of nicotine dependence; Z88.8 Allergy status to other drugs, medicaments and biological substances; Z79.4 Long term (current) use of insulin; Z79.82 Long term (current) use of aspirin; Z79.84 Long term (current) use of oral hypoglycemic drugs; Z79.899 Other long term (current) drug therapy
CPT/HCPCS: 36415; 71045; 74177; 80048; 80053; 80076; 80143; 82140; 82248; 82272; 82607; 82746; 82947; 83010; 83615; 85025; 85027; 85045; 85610; 85730; 86704; 86706; 86709; 86803; 86850; 86860; 86870; 86880; 86885; 86900; 86901; 86905; 86906; 86920; 86921; 86970; 86978; 87340; 87635; 93005; 99284; 99285; J1650; J2930; P9016; Q9967

== ENCOUNTER → 2022-12-03 11:26 | Outpatient (BNV) | payer MEDICARE, SELFPAY | PROVIDERS: PCP Nurse Practitioner Family; Visit Provider Internal Medicine Medical Oncology | DX: D59.10 Autoimmune hemolytic anemia, unspecified (principal) | CPT/HCPCS: 99212; 99213; 99214 ==

== ENCOUNTER 2022-12-06 10:57 | Outpatient (REF) | payer MEDICARE, SELFPAY ==
[2022-12-06 14:05] LABS: MANUAL DIFF FLAG NO
[2022-12-06 14:12] LABS: Basophils Percent Auto 0.2 % (0-2); Eosinophils Absolute Auto 0.1 X10*3/uL (0.0-0.4); Eosinophils Percent Auto 1.4 % (0-4); Hemoglobin 11.3 g/dl (14.0-18.0); Imm Gran Abs Auto 0.07 X10*3/uL (0.00-0.03); Imm Gran Pct Auto 1.1 % (0.0-0.4); Lymphocytes Absolute Auto 1.7 X10*3/uL (1.2-4.9); Mean Corpuscular HGB Conc 33.2 g/dl (31.0-36.0); Mean Corpuscular Hemoglobin 35.5 pg (27.0-33.0); Mean Corpuscular Volume 106.9 fL (80.0-98.0); Mean Platelet Volume 10.1 fL (9.4-12.4); Monocytes Absolute Auto 0.4 X10*3/uL (0.1-1.2); Monocytes Percent Auto 6.1 % (2-11); Neutrophils Absolute Auto 4.2 x10*3/uL (2.0-8.3); Neutrophils Percent Auto 65.2 % (45-73); Platelet Count 124 X10*3/uL (160-400); Red Blood Count 3.18 X10*6/uL (4.60-5.80); Red Cell Distribution Width 14.9 % (11.0-16.0); White Blood Count 6.4 X10*3/uL (4.8-10.8)
[2022-12-06 14:47] LABS: Alanine Aminotransferase 28 U/L (0-40); Albumin Level 3.8 g/dL (3.5-5.0); Alkaline Phosphatase 127 U/L (39-117); Anion Gap 14 (12-20); Aspartate Amino Transferase 23 U/L (5-37); Bilirubin Total 1.2 mg/dL (0.0-1.0); Blood Urea Nitrogen 18 mg/dL (9-16); Carbon Dioxide 26 mmol/L (22-29); Chloride 101 mmol/L (96-108); Estimated Glomerular Filt Rate > 60; Glucose Random 310 mg/dL (60-115); Potassium 4.2 mmol/L (3.3-5.1); Sodium 137 mmol/L (135-145); Total Protein 5.8 g/dL (6.5-8.0)
== END 2022-12-06 10:58 | disposition home or self-care (01) ==
LOC: HO.HMGCLDS 10:57
PROVIDERS: Visit Provider Internal Medicine Medical Oncology
DX: D58.9 Hereditary hemolytic anemia, unspecified (principal)
CPT/HCPCS: 36415; 80053; 85025

== ENCOUNTER 2022-12-20 10:18 | Outpatient (REF) | payer MEDICARE, SELFPAY ==
[2022-12-20 11:31] LABS: MANUAL DIFF FLAG NO
[2022-12-20 11:56] LABS: Basophils Percent Auto 0.3 % (0-2); Eosinophils Percent Auto 0.7 % (0-4); Hematocrit 36.5 % (42.0-52.0); Hemoglobin 12.3 g/dl (14.0-18.0); Imm Gran Abs Auto 0.12 X10*3/uL (0.00-0.03); Lymphocytes Percent Auto 33.7 % (20-40); Mean Corpuscular HGB Conc 33.7 g/dl (31.0-36.0); Mean Corpuscular Hemoglobin 35.3 pg (27.0-33.0); Mean Corpuscular Volume 104.9 fL (80.0-98.0); Mean Platelet Volume 9.8 fL (9.4-12.4); Monocytes Absolute Auto 0.3 X10*3/uL (0.1-1.2); Monocytes Percent Auto 5.7 % (2-11); Neutrophils Absolute Auto 3.4 x10*3/uL (2.0-8.3); Neutrophils Percent Auto 57.6 % (45-73); Platelet Count 175 X10*3/uL (160-400); Red Blood Count 3.48 X10*6/uL (4.60-5.80); Red Cell Distribution Width 13.2 % (11.0-16.0); White Blood Count 5.9 X10*3/uL (4.8-10.8)
[2022-12-20 12:06] LABS: Alanine Aminotransferase 29 U/L (0-40); Albumin Level 3.9 g/dL (3.5-5.0); Alkaline Phosphatase 105 U/L (39-117); Anion Gap 14 (12-20); Aspartate Amino Transferase 17 U/L (5-37); Bilirubin Total 0.7 mg/dL (0.0-1.0); Blood Urea Nitrogen 18 mg/dL (9-16); Calcium 9.2 mg/dL (8.4-10.2); Carbon Dioxide 30 mmol/L (22-29); Chloride 101 mmol/L (96-108); Cholesterol 167 mg/dL; Estimated Glomerular Filt Rate > 60; Glucose Fasting 213 mg/dL (60-99); Glucose Random 213 mg/dL (60-115); HDL Cholesterol 89 mg/dL; LDL Cholesterol Calculated 65 mg/dl; Potassium 3.8 mmol/L (3.3-5.1); Sodium 141 mmol/L (135-145); Total Protein 5.8 g/dL (6.5-8.0); Triglycerides 66 mg/dL
[2022-12-20 12:28] LABS: TSH reflex Free T4 1.93 uIU/mL (0.32-4.0)
[2022-12-20 14:15] LABS: Estimated Average Glucose 203 mg/dL; Hemoglobin A1c % 8.7 %
[2022-12-20 16:50] LABS: Appearance Urine Clear; Color Urine Yellow; Glucose Urine UA >=1000 mg/dL (Negative); Leukocyte Esterase Urine Negative (Negative); Nitrite Urine Negative (Negative); Specific Gravity - Urine >= 1.030 (1.005-1.025); UMIC TRIGGER UACC YES; Urine Blood Negative (Negative); Urine Ketones Negative (Negative); Urine Protein Negative (Neg-Trace)
[2022-12-20 17:02] LABS: Creatinine Urine 70.21 mg/dL; Microalbum/Creatinine Ratio Ur 11.3 ug/mg cr
[2022-12-20 17:58] LABS: Bacteria Urine None Seen (None Seen); Hyaline Casts Urine 0-2 /LPF (0-2); RBC Urine 0-2 /HPF (0-2); Squamous Epithelial Cell Urine 0-2 /HPF (0-2); WBC Urine 0-5 /HPF (0-5)
== END 2022-12-20 10:19 | disposition home or self-care (01) ==
LOC: HO.HMGCLDS 10:18
PROVIDERS: Absent Provider Internal Medicine Medical Oncology; PCP Nurse Practitioner Family; Visit Provider Nurse Practitioner Family
DX: Z00.00 Encounter for general adult medical examination without abnormal findings (principal); D58.9 Hereditary hemolytic anemia, unspecified; E11.9 Type 2 diabetes mellitus without complications
CPT/HCPCS: 36415; 80053; 80061; 81001; 82043; 83036; 84443; 85025

== ENCOUNTER 2022-12-20 15:05 | Outpatient (REF) | payer MEDICARE, SELFPAY | END 2022-12-20 15:06 | disposition home or self-care (01) | LOC: HO.HMGCLNP 15:05 | PROVIDERS: Visit Provider Nurse Practitioner Family | DX: Z13.89 Encounter for screening for other disorder (principal) ==

== ENCOUNTER 2023-01-03 11:31 | Outpatient (REF) | payer MEDICARE, SELFPAY ==
[2023-01-03 14:01] LABS: MANUAL DIFF FLAG NO
[2023-01-03 14:08] LABS: Basophils Percent Auto 0.3 % (0-2); Eosinophils Absolute Auto 0.1 X10*3/uL (0.0-0.4); Eosinophils Percent Auto 0.8 % (0-4); Hematocrit 39.5 % (42.0-52.0); Hemoglobin 12.8 g/dl (14.0-18.0); Imm Gran Abs Auto 0.12 X10*3/uL (0.00-0.03); Imm Gran Pct Auto 1.2 % (0.0-0.4); Lymphocytes Absolute Auto 2.6 X10*3/uL (1.2-4.9); Lymphocytes Percent Auto 26.6 % (20-40); Mean Corpuscular HGB Conc 32.4 g/dl (31.0-36.0); Mean Corpuscular Hemoglobin 32.7 pg (27.0-33.0); Mean Corpuscular Volume 100.8 fL (80.0-98.0); Mean Platelet Volume 10.2 fL (9.4-12.4); Monocytes Absolute Auto 0.6 X10*3/uL (0.1-1.2); Monocytes Percent Auto 6.2 % (2-11); Neutrophils Absolute Auto 6.3 x10*3/uL (2.0-8.3); Neutrophils Percent Auto 64.9 % (45-73); Platelet Count 186 X10*3/uL (160-400); Red Blood Count 3.92 X10*6/uL (4.60-5.80); Red Cell Distribution Width 13.1 % (11.0-16.0); White Blood Count 9.7 X10*3/uL (4.8-10.8)
[2023-01-03 14:25] LABS: Appearance Urine Clear; Color Urine Yellow; Glucose Urine UA >=1000 mg/dL (Negative); Leukocyte Esterase Urine Negative (Negative); Nitrite Urine Negative (Negative); PH 5.5 (5.0-9.0); Specific Gravity - Urine >= 1.030 (1.005-1.025); UMIC TRIGGER UACC YES; Urine Blood Negative (Negative); Urine Ketones Negative (Negative); Urine Protein Negative (Neg-Trace)
[2023-01-03 14:25] LABS: Alanine Aminotransferase 25 U/L (0-40); Albumin Level 3.9 g/dL (3.5-5.0); Alkaline Phosphatase 86 U/L (39-117); Anion Gap 13 (12-20); Aspartate Amino Transferase 16 U/L (5-37); Bilirubin Total 0.6 mg/dL (0.0-1.0); Blood Urea Nitrogen 17 mg/dL (9-16); Calcium 9.2 mg/dL (8.4-10.2); Carbon Dioxide 33 mmol/L (22-29); Chloride 102 mmol/L (96-108); Estimated Glomerular Filt Rate > 60; Glucose Random 122 mg/dL (60-115); Potassium 3.8 mmol/L (3.3-5.1); Sodium 144 mmol/L (135-145); Total Protein 5.9 g/dL (6.5-8.0)
[2023-01-03 14:31] LABS: Bacteria Urine None Seen (None Seen); Hyaline Casts Urine 0-2 /LPF (0-2); RBC Urine 0-2 /HPF (0-2); Squamous Epithelial Cell Urine 0-2 /HPF (0-2); WBC Urine 0-5 /HPF (0-5)
== END 2023-01-03 11:32 | disposition home or self-care (01) ==
LOC: HO.HMGCLR 11:31
PROVIDERS: Absent Provider Internal Medicine Medical Oncology; PCP Nurse Practitioner Family; Visit Provider Nurse Practitioner Family
DX: Z00.00 Encounter for general adult medical examination without abnormal findings (principal); D58.9 Hereditary hemolytic anemia, unspecified; E11.9 Type 2 diabetes mellitus without complications
CPT/HCPCS: 36415; 80053; 81001; 85025

== ENCOUNTER 2023-01-24 11:18 | Outpatient (REF) | payer MEDICARE, SELFPAY ==
[2023-01-24 12:50] LABS: MANUAL DIFF FLAG NO
[2023-01-24 12:55] LABS: Basophils Percent Auto 0.5 % (0-2); Eosinophils Absolute Auto 0.1 X10*3/uL (0.0-0.4); Eosinophils Percent Auto 1.2 % (0-4); Hematocrit 39.4 % (42.0-52.0); Hemoglobin 12.8 g/dl (14.0-18.0); Imm Gran Abs Auto 0.07 X10*3/uL (0.00-0.03); Imm Gran Pct Auto 0.9 % (0.0-0.4); Lymphocytes Absolute Auto 2.5 X10*3/uL (1.2-4.9); Lymphocytes Percent Auto 33.6 % (20-40); Mean Corpuscular HGB Conc 32.5 g/dl (31.0-36.0); Mean Corpuscular Hemoglobin 31.8 pg (27.0-33.0); Mean Corpuscular Volume 97.8 fL (80.0-98.0); Mean Platelet Volume 10.3 fL (9.4-12.4); Monocytes Absolute Auto 0.4 X10*3/uL (0.1-1.2); Monocytes Percent Auto 5.8 % (2-11); Neutrophils Absolute Auto 4.3 x10*3/uL (2.0-8.3); Platelet Count 189 X10*3/uL (160-400); Red Blood Count 4.03 X10*6/uL (4.60-5.80); Red Cell Distribution Width 13.1 % (11.0-16.0); White Blood Count 7.5 X10*3/uL (4.8-10.8)
[2023-01-24 14:02] LABS: Alanine Aminotransferase 22 U/L (0-40); Albumin Level 3.8 g/dL (3.5-5.0); Alkaline Phosphatase 69 U/L (39-117); Anion Gap 12 (12-20); Aspartate Amino Transferase 16 U/L (5-37); Bilirubin Total 0.6 mg/dL (0.0-1.0); Blood Urea Nitrogen 16 mg/dL (9-16); Calcium 8.9 mg/dL (8.4-10.2); Carbon Dioxide 32 mmol/L (22-29); Chloride 101 mmol/L (96-108); Estimated Glomerular Filt Rate > 60; Glucose Random 118 mg/dL (60-115); Lactate Dehydrogenase 228 U/L (118-273); Potassium 3.6 mmol/L (3.3-5.1); Sodium 141 mmol/L (135-145); Total Protein 5.8 g/dL (6.5-8.0)
[2023-01-27 18:59] LABS: Haptoglobin 152 mg/dL (43-212)
== END 2023-01-24 11:19 | disposition home or self-care (01) ==
LOC: HO.HMGCLDS 11:18
PROVIDERS: Visit Provider Internal Medicine Medical Oncology
DX: D58.9 Hereditary hemolytic anemia, unspecified (principal)
CPT/HCPCS: 36415; 80053; 83010; 83615; 85025; 86880

== ENCOUNTER 2023-01-31 10:42 | Outpatient (REF) | payer MEDICARE, SELFPAY ==
[2023-01-31 13:58] LABS: MANUAL DIFF FLAG NO
[2023-01-31 14:07] LABS: Basophils Percent Auto 0.4 % (0-2); Eosinophils Absolute Auto 0.1 X10*3/uL (0.0-0.4); Eosinophils Percent Auto 1.7 % (0-4); Hematocrit 42.1 % (42.0-52.0); Hemoglobin 13.5 g/dl (14.0-18.0); Imm Gran Abs Auto 0.05 X10*3/uL (0.00-0.03); Imm Gran Pct Auto 0.7 % (0.0-0.4); Immature Retic Fraction 18.9 % (2.3-13.4); Lymphocytes Absolute Auto 2.6 X10*3/uL (1.2-4.9); Lymphocytes Percent Auto 33.8 % (20-40); Mean Corpuscular HGB Conc 32.1 g/dl (31.0-36.0); Mean Corpuscular Hemoglobin 30.8 pg (27.0-33.0); Mean Corpuscular Volume 96.1 fL (80.0-98.0); Mean Platelet Volume 10.2 fL (9.4-12.4); Monocytes Absolute Auto 0.5 X10*3/uL (0.1-1.2); Monocytes Percent Auto 6.9 % (2-11); Neutrophils Absolute Auto 4.3 x10*3/uL (2.0-8.3); Neutrophils Percent Auto 56.5 % (45-73); Platelet Count 193 X10*3/uL (160-400); Red Blood Count 4.38 X10*6/uL (4.60-5.80); Red Cell Distribution Width 13.1 % (11.0-16.0); Retic HGB Equivalent 33.4 pg (30.0-35.0); Reticulocyte Percent 2.3 % (0.5-1.8); Reticulocytes Absolute 0.103 X10*6/uL (0.026-0.095); White Blood Count 7.6 X10*3/uL (4.8-10.8)
[2023-01-31 16:32] LABS: Alanine Aminotransferase 36 U/L (0-40); Albumin Level 3.9 g/dL (3.5-5.0); Alkaline Phosphatase 73 U/L (39-117); Anion Gap 15 (12-20); Aspartate Amino Transferase 25 U/L (5-37); Bilirubin Total 0.7 mg/dL (0.0-1.0); Blood Urea Nitrogen 16 mg/dL (9-16); Calcium 9.3 mg/dL (8.4-10.2); Carbon Dioxide 30 mmol/L (22-29); Chloride 104 mmol/L (96-108); Estimated Glomerular Filt Rate > 60; Glucose Random 94 mg/dL (60-115); Lactate Dehydrogenase 250 U/L (118-273); Potassium 4.5 mmol/L (3.3-5.1); Sodium 144 mmol/L (135-145); Total Protein 6.2 g/dL (6.5-8.0)
== END 2023-01-31 10:43 | disposition home or self-care (01) ==
LOC: HO.HMGCLDS 10:42
PROVIDERS: PCP Nurse Practitioner Family; Visit Provider Internal Medicine Medical Oncology
DX: D58.9 Hereditary hemolytic anemia, unspecified (principal)
CPT/HCPCS: 36415; 80053; 83615; 85025; 85045

== ENCOUNTER 2023-02-07 11:09 | Outpatient (REF) | payer MEDICARE, SELFPAY ==
[2023-02-07 13:49] LABS: MANUAL DIFF FLAG NO
[2023-02-07 13:53] LABS: Basophils Percent Auto 0.3 % (0-2); Eosinophils Absolute Auto 0.1 X10*3/uL (0.0-0.4); Eosinophils Percent Auto 1.2 % (0-4); Hematocrit 43.2 % (42.0-52.0); Imm Gran Abs Auto 0.05 X10*3/uL (0.00-0.03); Imm Gran Pct Auto 0.6 % (0.0-0.4); Lymphocytes Absolute Auto 2.1 X10*3/uL (1.2-4.9); Lymphocytes Percent Auto 24.7 % (20-40); Mean Corpuscular HGB Conc 32.4 g/dl (31.0-36.0); Mean Corpuscular Volume 95.8 fL (80.0-98.0); Mean Platelet Volume 10.9 fL (9.4-12.4); Monocytes Absolute Auto 0.5 X10*3/uL (0.1-1.2); Monocytes Percent Auto 5.7 % (2-11); Neutrophils Absolute Auto 5.8 x10*3/uL (2.0-8.3); Neutrophils Percent Auto 67.5 % (45-73); Platelet Count 180 X10*3/uL (160-400); Red Blood Count 4.51 X10*6/uL (4.60-5.80); Red Cell Distribution Width 13.2 % (11.0-16.0); White Blood Count 8.6 X10*3/uL (4.8-10.8)
[2023-02-07 14:10] LABS: Alanine Aminotransferase 20 U/L (0-40); Albumin Level 3.9 g/dL (3.5-5.0); Alkaline Phosphatase 71 U/L (39-117); Anion Gap 9 (12-20); Appearance Urine Clear; Aspartate Amino Transferase 14 U/L (5-37); Bilirubin Total 0.7 mg/dL (0.0-1.0); Blood Urea Nitrogen 13 mg/dL (9-16); Carbon Dioxide 33 mmol/L (22-29); Chloride 102 mmol/L (96-108); Cholesterol 142 mg/dL; Color Urine Yellow; Estimated Glomerular Filt Rate > 60; Glucose Fasting 124 mg/dL (60-99); Glucose Urine UA Negative (Negative); HDL Cholesterol 76 mg/dL; LDL Cholesterol Calculated 49 mg/dl; Leukocyte Esterase Urine Negative (Negative); Nitrite Urine Negative (Negative); PH 6.5 (5.0-9.0); Sodium 140 mmol/L (135-145); Specific Gravity - Urine 1.015 (1.005-1.025); Total Protein 6.1 g/dL (6.5-8.0); Triglycerides 87 mg/dL; Urine Blood Negative (Negative); Urine Ketones Negative (Negative); Urine Protein Negative (Neg-Trace)
[2023-02-07 14:13] LABS: Estimated Average Glucose 286 mg/dL; Hemoglobin A1c % 11.6 %
[2023-02-07 14:30] LABS: Prostate Specific Antigen Scr 1.57 ng/mL (<0.05-4.0)
== END 2023-02-07 11:10 | disposition home or self-care (01) ==
LOC: HO.HMGCLDS 11:09
PROVIDERS: PCP Nurse Practitioner Family; Visit Provider Nurse Practitioner Family
DX: E11.9 Type 2 diabetes mellitus without complications (principal); Z12.5 Encounter for screening for malignant neoplasm of prostate
CPT/HCPCS: 36415; 80053; 80061; 81003; 83036; 84153; 84443; 85025

== ENCOUNTER 2023-02-14 12:12 | Outpatient (REF) | payer MEDICARE, SELFPAY ==
[2023-02-14 13:51] LABS: MANUAL DIFF FLAG NO
[2023-02-14 14:03] LABS: Basophils Percent Auto 0.4 % (0-2); Eosinophils Absolute Auto 0.1 X10*3/uL (0.0-0.4); Eosinophils Percent Auto 1.6 % (0-4); Hematocrit 42.7 % (42.0-52.0); Hemoglobin 13.7 g/dl (14.0-18.0); Imm Gran Abs Auto 0.04 X10*3/uL (0.00-0.03); Imm Gran Pct Auto 0.5 % (0.0-0.4); Lymphocytes Absolute Auto 2.3 X10*3/uL (1.2-4.9); Lymphocytes Percent Auto 30.6 % (20-40); Mean Corpuscular HGB Conc 32.1 g/dl (31.0-36.0); Mean Corpuscular Hemoglobin 30.1 pg (27.0-33.0); Mean Corpuscular Volume 93.8 fL (80.0-98.0); Mean Platelet Volume 10.4 fL (9.4-12.4); Monocytes Absolute Auto 0.5 X10*3/uL (0.1-1.2); Monocytes Percent Auto 6.7 % (2-11); Neutrophils Absolute Auto 4.5 x10*3/uL (2.0-8.3); Neutrophils Percent Auto 60.2 % (45-73); Platelet Count 171 X10*3/uL (160-400); Red Blood Count 4.55 X10*6/uL (4.60-5.80); Red Cell Distribution Width 13.1 % (11.0-16.0); White Blood Count 7.5 X10*3/uL (4.8-10.8)
[2023-02-14 14:23] LABS: Alanine Aminotransferase 18 U/L (0-40); Alkaline Phosphatase 59 U/L (39-117); Anion Gap 12 (12-20); Aspartate Amino Transferase 15 U/L (5-37); Bilirubin Total 0.7 mg/dL (0.0-1.0); Blood Urea Nitrogen 13 mg/dL (9-16); Calcium 9.2 mg/dL (8.4-10.2); Carbon Dioxide 30 mmol/L (22-29); Chloride 106 mmol/L (96-108); Estimated Glomerular Filt Rate > 60; Glucose Random 96 mg/dL (60-115); Potassium 4.2 mmol/L (3.3-5.1); Sodium 144 mmol/L (135-145); Total Protein 6.2 g/dL (6.5-8.0)
== END 2023-02-14 12:13 | disposition home or self-care (01) ==
LOC: HO.HMGCLDS 12:12
PROVIDERS: PCP Nurse Practitioner Family; Visit Provider Internal Medicine Medical Oncology
DX: D59.9 Acquired hemolytic anemia, unspecified (principal)
CPT/HCPCS: 36415; 80053; 85025

== ENCOUNTER 2023-02-21 11:35 | Outpatient (REF) | payer MEDICARE, SELFPAY ==
[2023-02-21 13:53] LABS: MANUAL DIFF FLAG NO
[2023-02-21 14:12] LABS: Basophils Absolute Auto 0.1 X10*3/uL (0.0-0.2); Basophils Percent Auto 0.8 % (0-2); Eosinophils Absolute Auto 0.1 X10*3/uL (0.0-0.4); Eosinophils Percent Auto 1.8 % (0-4); Hematocrit 40.8 % (42.0-52.0); Hemoglobin 13.5 g/dl (14.0-18.0); Imm Gran Abs Auto 0.03 X10*3/uL (0.00-0.03); Imm Gran Pct Auto 0.5 % (0.0-0.4); Lymphocytes Percent Auto 29.8 % (20-40); Mean Corpuscular HGB Conc 33.1 g/dl (31.0-36.0); Mean Corpuscular Hemoglobin 30.9 pg (27.0-33.0); Mean Corpuscular Volume 93.4 fL (80.0-98.0); Mean Platelet Volume 10.7 fL (9.4-12.4); Monocytes Absolute Auto 0.5 X10*3/uL (0.1-1.2); Monocytes Percent Auto 8.2 % (2-11); Neutrophils Absolute Auto 3.9 x10*3/uL (2.0-8.3); Neutrophils Percent Auto 58.9 % (45-73); Platelet Count 177 X10*3/uL (160-400); Red Blood Count 4.37 X10*6/uL (4.60-5.80); Red Cell Distribution Width 13.2 % (11.0-16.0); White Blood Count 6.6 X10*3/uL (4.8-10.8)
[2023-02-21 14:36] LABS: Alanine Aminotransferase 17 U/L (0-40); Alkaline Phosphatase 58 U/L (39-117); Anion Gap 11 (12-20); Aspartate Amino Transferase 16 U/L (5-37); Bilirubin Total 0.7 mg/dL (0.0-1.0); Blood Urea Nitrogen 15 mg/dL (9-16); Calcium 8.8 mg/dL (8.4-10.2); Carbon Dioxide 30 mmol/L (22-29); Chloride 107 mmol/L (96-108); Estimated Glomerular Filt Rate > 60; Glucose Random 104 mg/dL (60-115); Potassium 3.7 mmol/L (3.3-5.1); Sodium 144 mmol/L (135-145); Total Protein 6.1 g/dL (6.5-8.0)
== END 2023-02-21 11:36 | disposition home or self-care (01) ==
LOC: HO.HMGCLDS 11:35
PROVIDERS: PCP Nurse Practitioner Family; Visit Provider Internal Medicine Medical Oncology
DX: D58.9 Hereditary hemolytic anemia, unspecified (principal)
CPT/HCPCS: 36415; 80053; 85025

== ENCOUNTER 2023-03-21 11:05 | Outpatient (REF) | payer MEDICARE, SELFPAY ==
[2023-03-21 13:48] LABS: MANUAL DIFF FLAG NO
[2023-03-21 14:04] LABS: Basophils Percent Auto 0.7 % (0-2); Eosinophils Absolute Auto 0.1 X10*3/uL (0.0-0.4); Eosinophils Percent Auto 2.5 % (0-4); Hematocrit 40.9 % (42.0-52.0); Hemoglobin 13.1 g/dl (14.0-18.0); Imm Gran Abs Auto 0.01 X10*3/uL (0.00-0.03); Imm Gran Pct Auto 0.2 % (0.0-0.4); Lymphocytes Absolute Auto 1.6 X10*3/uL (1.2-4.9); Lymphocytes Percent Auto 28.2 % (20-40); Mean Corpuscular Hemoglobin 28.7 pg (27.0-33.0); Mean Corpuscular Volume 89.5 fL (80.0-98.0); Mean Platelet Volume 11.2 fL (9.4-12.4); Monocytes Absolute Auto 0.4 X10*3/uL (0.1-1.2); Monocytes Percent Auto 7.5 % (2-11); Neutrophils Absolute Auto 3.4 x10*3/uL (2.0-8.3); Neutrophils Percent Auto 60.9 % (45-73); Platelet Count 193 X10*3/uL (160-400); Red Blood Count 4.57 X10*6/uL (4.60-5.80); Red Cell Distribution Width 13.3 % (11.0-16.0); White Blood Count 5.6 X10*3/uL (4.8-10.8)
[2023-03-21 14:13] LABS: Alanine Aminotransferase 12 U/L (0-40); Alkaline Phosphatase 60 U/L (39-117); Anion Gap 13 (12-20); Aspartate Amino Transferase 18 U/L (5-37); Bilirubin Total 0.9 mg/dL (0.0-1.0); Blood Urea Nitrogen 14 mg/dL (9-16); Calcium 8.9 mg/dL (8.4-10.2); Carbon Dioxide 26 mmol/L (22-29); Chloride 105 mmol/L (96-108); Estimated Glomerular Filt Rate > 60; Glucose Random 102 mg/dL (60-115); Potassium 4.1 mmol/L (3.3-5.1); Sodium 140 mmol/L (135-145); Total Protein 6.4 g/dL (6.5-8.0)
== END 2023-03-21 11:06 | disposition home or self-care (01) ==
LOC: HO.HMGCLDS 11:05
PROVIDERS: Internal Medicine Medical Oncology; PCP Nurse Practitioner Family; Visit Provider Nurse Practitioner Family
DX: D58.9 Hereditary hemolytic anemia, unspecified (principal)
CPT/HCPCS: 36415; 80053; 85025

== ENCOUNTER 2023-04-04 09:51 | Outpatient (REF) | payer MEDICARE, SELFPAY ==
[2023-04-04 11:17] LABS: MANUAL DIFF FLAG NO
[2023-04-04 11:49] LABS: Alanine Aminotransferase 13 U/L (0-40); Albumin Level 4.1 g/dL (3.5-5.0); Alkaline Phosphatase 61 U/L (39-117); Aspartate Amino Transferase 18 U/L (5-37); Basophils Absolute Auto 0.1 X10*3/uL (0.0-0.2); Basophils Percent Auto 0.8 % (0-2); Bilirubin Total 0.7 mg/dL (0.0-1.0); Blood Urea Nitrogen 13 mg/dL (9-16); Calcium 9.3 mg/dL (8.4-10.2); Carbon Dioxide 29 mmol/L (22-29); Chloride 105 mmol/L (96-108); Eosinophils Absolute Auto 0.2 X10*3/uL (0.0-0.4); Eosinophils Percent Auto 2.9 % (0-4); Estimated Glomerular Filt Rate > 60; Glucose Random 110 mg/dL (60-115); Hematocrit 42.4 % (42.0-52.0); Hemoglobin 13.6 g/dl (14.0-18.0); Imm Gran Abs Auto 0.02 X10*3/uL (0.00-0.03); Imm Gran Pct Auto 0.3 % (0.0-0.4); Lymphocytes Percent Auto 29.7 % (20-40); Mean Corpuscular HGB Conc 32.1 g/dl (31.0-36.0); Mean Corpuscular Hemoglobin 28.6 pg (27.0-33.0); Mean Corpuscular Volume 89.3 fL (80.0-98.0); Mean Platelet Volume 10.7 fL (9.4-12.4); Monocytes Absolute Auto 0.4 X10*3/uL (0.1-1.2); Monocytes Percent Auto 6.6 % (2-11); Neutrophils Percent Auto 59.7 % (45-73); Platelet Count 243 X10*3/uL (160-400); Potassium 4.2 mmol/L (3.3-5.1); Red Blood Count 4.75 X10*6/uL (4.60-5.80); Red Cell Distribution Width 13.1 % (11.0-16.0); Sodium 141 mmol/L (135-145); Total Protein 6.5 g/dL (6.5-8.0); White Blood Count 6.7 X10*3/uL (4.8-10.8)
[2023-04-04 12:11] LABS: Anion Gap 12 (12-20); Lactate Dehydrogenase 185 U/L (118-273)
--- NOTE | 2023-04-04 13:20 | MHC.HEMONC ---
Pt called regarding labwork that was done today. I showed to Dr Briceño. Pt should take prednisone 2.5 mg for one day then skip two days and continue til his appt here next week. Labs were good and he is tapering. Recent dose was 2.5mg every other day.
[2023-04-08 13:28] LABS: Haptoglobin 189 mg/dL (43-212)
== END 2023-04-04 09:52 | disposition home or self-care (01) ==
LOC: HO.HMGCLDS 09:51
PROVIDERS: PCP Nurse Practitioner Family; Visit Provider Internal Medicine Medical Oncology
DX: D58.9 Hereditary hemolytic anemia, unspecified (principal)
CPT/HCPCS: 36415; 80053; 83010; 83615; 85025

== ENCOUNTER 2023-04-22 11:07 | Outpatient (REF) | payer MEDICARE, SELFPAY ==
[2023-04-22 14:23] LABS: MANUAL DIFF FLAG NO
[2023-04-22 14:35] LABS: Basophils Percent Auto 0.7 % (0-2); Eosinophils Absolute Auto 0.2 X10*3/uL (0.0-0.4); Eosinophils Percent Auto 3.3 % (0-4); Hematocrit 44.4 % (42.0-52.0); Hemoglobin 14.3 g/dl (14.0-18.0); Imm Gran Abs Auto 0.01 X10*3/uL (0.00-0.03); Imm Gran Pct Auto 0.2 % (0.0-0.4); Lymphocytes Absolute Auto 1.7 X10*3/uL (1.2-4.9); Lymphocytes Percent Auto 30.8 % (20-40); Mean Corpuscular HGB Conc 32.2 g/dl (31.0-36.0); Mean Corpuscular Hemoglobin 28.7 pg (27.0-33.0); Mean Platelet Volume 10.9 fL (9.4-12.4); Monocytes Absolute Auto 0.4 X10*3/uL (0.1-1.2); Monocytes Percent Auto 6.5 % (2-11); Neutrophils Absolute Auto 3.2 x10*3/uL (2.0-8.3); Neutrophils Percent Auto 58.5 % (45-73); Platelet Count 204 X10*3/uL (160-400); Red Blood Count 4.99 X10*6/uL (4.60-5.80); Red Cell Distribution Width 13.6 % (11.0-16.0); White Blood Count 5.5 X10*3/uL (4.8-10.8)
[2023-04-22 14:45] LABS: Alanine Aminotransferase 12 U/L (0-40); Albumin Level 4.2 g/dL (3.5-5.0); Alkaline Phosphatase 55 U/L (39-117); Anion Gap 14 (12-20); Aspartate Amino Transferase 20 U/L (5-37); Bilirubin Total 0.9 mg/dL (0.0-1.0); Blood Urea Nitrogen 11 mg/dL (9-16); Calcium 9.7 mg/dL (8.4-10.2); Carbon Dioxide 27 mmol/L (22-29); Chloride 104 mmol/L (96-108); Estimated Glomerular Filt Rate > 60; Glucose Random 120 mg/dL (60-115); Potassium 3.9 mmol/L (3.3-5.1); Sodium 141 mmol/L (135-145); Total Protein 7.3 g/dL (6.5-8.0)
== END 2023-04-22 11:08 | disposition home or self-care (01) ==
LOC: HO.HMGCLDS 11:07
PROVIDERS: PCP Nurse Practitioner Family; Visit Provider Internal Medicine Medical Oncology
DX: D58.9 Hereditary hemolytic anemia, unspecified (principal)
CPT/HCPCS: 36415; 80053; 85025

== ENCOUNTER 2023-06-06 11:25 | Outpatient (REF) | payer MEDICARE, SELFPAY ==
[2023-06-06 13:20] LABS: MANUAL DIFF FLAG NO
[2023-06-06 13:34] LABS: Basophils Percent Auto 0.7 % (0-2); Eosinophils Absolute Auto 0.2 X10*3/uL (0.0-0.4); Eosinophils Percent Auto 2.9 % (0-4); Hemoglobin 14.5 g/dl (14.0-18.0); Imm Gran Abs Auto 0.02 X10*3/uL (0.00-0.03); Imm Gran Pct Auto 0.3 % (0.0-0.4); Lymphocytes Absolute Auto 1.6 X10*3/uL (1.2-4.9); Lymphocytes Percent Auto 28.2 % (20-40); Mean Platelet Volume 11.1 fL (9.4-12.4); Monocytes Absolute Auto 0.4 X10*3/uL (0.1-1.2); Monocytes Percent Auto 6.7 % (2-11); Neutrophils Absolute Auto 3.5 x10*3/uL (2.0-8.3); Neutrophils Percent Auto 61.2 % (45-73); Platelet Count 197 X10*3/uL (160-400); Red Cell Distribution Width 13.1 % (11.0-16.0); White Blood Count 5.8 X10*3/uL (4.8-10.8)
[2023-06-06 14:11] LABS: Alanine Aminotransferase 10 U/L (0-40); Albumin Level 4.1 g/dL (3.5-5.0); Alkaline Phosphatase 55 U/L (39-117); Anion Gap 18 (12-20); Aspartate Amino Transferase 18 U/L (5-37); Bilirubin Total 0.7 mg/dL (0.0-1.0); Blood Urea Nitrogen 12 mg/dL (9-16); Calcium 9.8 mg/dL (8.4-10.2); Carbon Dioxide 23 mmol/L (22-29); Chloride 103 mmol/L (96-108); Estimated Glomerular Filt Rate > 60; Glucose Random 115 mg/dL (60-115); Potassium 4.3 mmol/L (3.3-5.1); Sodium 140 mmol/L (135-145)
[2023-06-06 15:28] LABS: Lactate Dehydrogenase 259 U/L (118-273)
== END 2023-06-06 11:26 | disposition home or self-care (01) ==
LOC: HO.HMGCLDS 11:25
PROVIDERS: Internal Medicine Medical Oncology; PCP Nurse Practitioner Family; Visit Provider Nurse Practitioner Family
DX: D59.9 Acquired hemolytic anemia, unspecified (principal)
CPT/HCPCS: 36415; 80053; 83615; 85025

== ENCOUNTER 2023-08-05 09:11 | Outpatient (REF) | payer MEDICARE, SELFPAY ==
[2023-08-05 11:25] LABS: MANUAL DIFF FLAG NO
[2023-08-05 11:37] LABS: Basophils Absolute Auto 0.1 X10*3/uL (0.0-0.2); Basophils Percent Auto 0.9 % (0-2); Eosinophils Absolute Auto 0.2 X10*3/uL (0.0-0.4); Eosinophils Percent Auto 4.3 % (0-4); Hematocrit 44.6 % (42.0-52.0); Hemoglobin 14.6 g/dl (14.0-18.0); Imm Gran Abs Auto 0.01 X10*3/uL (0.00-0.03); Imm Gran Pct Auto 0.2 % (0.0-0.4); Lymphocytes Absolute Auto 1.8 X10*3/uL (1.2-4.9); Lymphocytes Percent Auto 34.4 % (20-40); Mean Corpuscular HGB Conc 32.7 g/dl (31.0-36.0); Mean Corpuscular Hemoglobin 29.3 pg (27.0-33.0); Mean Corpuscular Volume 89.6 fL (80.0-98.0); Mean Platelet Volume 10.9 fL (9.4-12.4); Monocytes Absolute Auto 0.4 X10*3/uL (0.1-1.2); Monocytes Percent Auto 7.1 % (2-11); Neutrophils Absolute Auto 2.8 x10*3/uL (2.0-8.3); Neutrophils Percent Auto 53.1 % (45-73); Platelet Count 203 X10*3/uL (160-400); Red Blood Count 4.98 X10*6/uL (4.60-5.80); Red Cell Distribution Width 12.9 % (11.0-16.0); White Blood Count 5.4 X10*3/uL (4.8-10.8)
[2023-08-05 11:49] LABS: Appearance Urine Clear; Color Urine Yellow; Glucose Urine UA Negative (Negative); Leukocyte Esterase Urine Negative (Negative); Nitrite Urine Negative (Negative); Urine Blood Negative (Negative); Urine Ketones Negative (Negative); Urine Protein Negative (Neg-Trace)
[2023-08-05 12:08] LABS: Estimated Average Glucose 134 mg/dL; Hemoglobin A1c % 6.3 % (<6.0)
[2023-08-05 13:00] LABS: Alanine Aminotransferase 9 U/L (0-40); Albumin Level 4.3 g/dL (3.5-5.0); Alkaline Phosphatase 54 U/L (39-117); Anion Gap 16 (12-20); Aspartate Amino Transferase 16 U/L (5-37); Bilirubin Total 0.6 mg/dL (0.0-1.0); Blood Urea Nitrogen 16 mg/dL (9-16); Calcium 9.8 mg/dL (8.4-10.2); Carbon Dioxide 25 mmol/L (22-29); Chloride 104 mmol/L (96-108); Cholesterol 105 mg/dL (<200); Estimated Glomerular Filt Rate > 60; Glucose Fasting 133 mg/dL (60-99); Glucose Random 134 mg/dL (60-115); HDL Cholesterol 46 mg/dL (>40); LDL Cholesterol Calculated 44 mg/dL (<100); Lactate Dehydrogenase 147 U/L (118-273); Potassium 4.2 mmol/L (3.3-5.1); Sodium 141 mmol/L (135-145); Total Protein 7.1 g/dL (6.5-8.0); Triglycerides 79 mg/dL (<150)
[2023-08-05 13:17] LABS: TSH reflex Free T4 1.42 uIU/mL (0.32-4.0)
== END 2023-08-05 09:12 | disposition home or self-care (01) ==
LOC: HO.HMGCLDS 09:11
PROVIDERS: Absent Provider Internal Medicine Medical Oncology; PCP Nurse Practitioner Family; Visit Provider Nurse Practitioner Family
DX: E11.9 Type 2 diabetes mellitus without complications (principal); D58.9 Hereditary hemolytic anemia, unspecified
CPT/HCPCS: 36415; 80053; 80061; 81003; 83036; 83615; 84443; 85025

== ENCOUNTER 2023-08-06 13:49 | Outpatient (AMB) | payer MEDICARE, SELFPAY ==
--- NOTE | 2023-08-06 13:52 | A.OFFPC_ITS ---
Vital Signs 08/06/23 13:54 Height 6 ft Weight 277 lb BMI 37.6 BP 120/82 Blood Pressure Location Rt brachial Position Sitting Pulse 65 Pulse Source Pulse Oximeter Pulse Oximetry (%) 95 Oxygen Delivery Method Room Air Intake Visit Reasons: Annual PE - A1C needed Allergies atorvastatin Allergy (Unknown, Verified 08/06/23 14:04) Unknown Medication List - Last Reconciled 08/06/23 by PB Correa aspirin 81 mg PO DAILY 90 days blood sugar diagnostic (FreeStyle Lite Strips) Test blood sugar twice a day blood-glucose meter (FreeStyle Lite Meter kit) As directed flash glucose scanning reader (FreeStyle Kindra 2 [place]) As directed flash glucose sensor (FreeStyle Kindra 2 Sensor kit) As directed to test blood sugars insulin glargine (Lantus U-100 Insulin) 12 units subcut DAILY insulin syringe-needle U-100 (Droplet Insulin Syringe) tid testing for diabetes lancets (FreeStyle Lancets) Test blood sugar twice a day metformin 500 mg PO DAILY multivitamin with iron 1 tab PO DAILY 90 days rosuvastatin (Crestor) 10 mg PO BEDTIME sildenafil 25 mg PO DAILY PRN 30 days Tobacco use date assessed: 03/13/23 Fall risk assessment: No Falls in past year Last assessed Fall Risk: 08/06/23 HPI Annual PE - A1C needed HPI Details Pt is here for a PE. Labs were already performed. Colonoscopy is scheduled for next month according to pt. PSA is up to date. Pt is a diabetic, on a statin. Last A1C was 6.3, microalbumin is up to date. Denies polyuria, polydipsia, and neuropathy. Pt denies any signs and symptoms of hypoglycemia and does know how to correct it. Pt is currently taking lantus 12 units. His blood sugar is well-controlled. Will have him decrease lantus to 6 units and continue to work on his diet [facility] Medical History Type 2 diabetes mellitus Surgical History History of surgery History of tooth extraction Family History Father Stroke Unknown family medical history Pancreatic cancer Mother Cancer HTN (hypertension) Unknown family medical history Diabetes mellitus Sister Mental health disorder Social History Household Members: Spouse Housing: Condominium Are you a primary manager progressive care to a significant other at home: No Do you presently have visiting nurse or other home services: No Alcohol intake: current Alcohol intake frequency: 0-2 drinks per day Patient Tobacco Use Status: Former Tobacco user Years Smoked: quit 30 years e-Cigarette/Vaping Use: Never Used Second Hand Smoke Exposure: No Advance Directives Date on File: 11/15/22 service: Yes Current occupational status: retired Cognitive needs: No Hearing needs: No Vision needs: No Questionnaire Thrive Questionnaire Date Thrive assessed: 01/14/22 LAINA-7 AMB Questionnaire LAINA-7 Date LAINA - 7 assessed: 01/14/22 Source: Developed by Drs. Marco Wright, Ya Chicas, Hiram Ramsey and colleagues, with an educational mervat from [employer]. Review of Systems Const Denies chills and Denies fever(s) Eyes Denies blurry vision ENT Denies vertigo, Denies dizziness and Denies sore throat Card Denies chest pain at rest, Denies chest pain with activity, Denies diaphoresis, Denies dyspnea and Denies dyspnea on exertion Resp Denies cough, Denies dyspnea, Denies dyspnea on exertion and Denies wheezing GI Denies abdominal pain, Denies melena, Denies hematochezia, Denies constipation, Denies diarrhea and Denies loose stools Denies hematuria Musc Denies numbness and Denies tingling Skin/Breast Denies lesions Neuro Denies vertigo, Denies dizziness, Denies numbness and Denies tingling Psych Denies anxiety, Denies depression, Denies homicidal ideation, Denies suicidal ideation and Denies other (substance abuse) Aller/Immun Denies wheezing Physical exam (Primary Care) Vital Signs: Last Vital Signs Pulse 65 08/06/23 13:54 BP 120/82 08/06/23 13:54 Pulse Ox 95 08/06/23 13:54 Oxygen Delivery Method Room Air 08/06/23 13:54 BMI result Body Mass Index 37.6 Tobacco/Smoking Status: Tobacco use Status Tobacco use date assessed 03/13/23 08/06/23 13:54 Patient Tobacco Use Status Former Tobacco user 08/06/23 13:54 e-Cigarette/Vaping Use Never Used 08/06/23 13:54 Thrive Assessment: Date of Thrive Assessment Date Thrive assessed 01/14/22 08/06/23 13:54 Const General: cooperative Nutritional Appearance: obese Orientation/consciousness: patient oriented x3 HENMT Head: Yes normal to inspection, Yes normocephalic and Yes atraumatic Ears: TM's normal bilaterally Eyes General: appearance normal, both eyes and all related structures Alignment and Position: alignment normal and position normal Neck Neck: Yes normal visual inspection and Yes no lymphadenopathy Thyroid: Thyroid normal Resp Effort & Inspection: normal respiratory effort Auscultation: clear to auscultation bilaterally Cardio Rate: regular rate Rhythm: regular rhythm Heart sounds: S1 normal heart sound present, S2 normal heart sound present and no murmurs GI Palpation (GI): Soft to palpation and nontender Auscultation: normal bowel sounds Male General Exam: Yes normal external exam Penis: normal penis Scrotum: scrotum normal, testes descended bilaterally and no inguinal hernias Testes: no testicular mass Skin Rashes: no rashes Neuro General: patient oriented x3, moves all extremities, no focal motor deficits and deep tendon reflexes 2+ bilaterally Romberg Test: Negative Extrem Other: bilat feet: + sensation with use of monofilament, feet intact without lesions or ulcerations Psych Appearance: grossly normal Mental Status: mental status grossly normal Speech and movement: Normal speech and movement present Affect: normal affect Attitude: cooperative Thought process: Normal thought process present Thought content: Normal thought content present Insight: Good insight present (Psych) Judgement: Good judgement present (Psych) Assessment and Plan Assessment & Plan (1) Diabetes: Code(s): E11.9 - Type 2 diabetes mellitus without complications Plan The patient agreed to the use of a medical billing and coding specialist for this encounter. Scribed for PB Bean by Genia Carrero medical billing and coding specialist, on 08/06/2023 at 14:00 EST. Coding Level of Care Code Est Pt Prev Care >65y(28148) Diagnoses Diabetes E11.9
[2023-08-06 13:54] VITALS: BP 120/82; PULSE 65; O2SAT 95; BMI 37.6
== END 2023-08-06 14:15 | disposition home or self-care (01) ==
PROVIDERS: Visit Provider Nurse Practitioner Family
DX: Z00.00 Encounter for general adult medical examination without abnormal findings (principal); E11.9 Type 2 diabetes mellitus without complications
CPT/HCPCS: 99397

== ENCOUNTER 2023-11-12 13:35 | Outpatient (REF) | payer MEDICARE, SELFPAY | END 2023-11-12 13:36 | disposition home or self-care (01) | LOC: HO.HMGCLR 13:35 | PROVIDERS: PCP Nurse Practitioner Family; Referring Provider Internal Medicine Medical Oncology; Visit Provider Nurse Practitioner Family | DX: E11.9 Type 2 diabetes mellitus without complications (principal); D58.9 Hereditary hemolytic anemia, unspecified | CPT/HCPCS: 36415; 80053; 80061; 81003; 83036; 84443; 85025 ==

== ENCOUNTER 2023-11-13 13:48 | Outpatient (AMB) | payer MEDICARE, SELFPAY ==
--- NOTE | 2023-11-13 13:56 | MHC.PC.OV ---
Vital Signs 11/13/23 14:00 Height 6 ft Weight 265 lb BMI 35.9 BP 130/76 Blood Pressure Location Rt brachial Position Sitting Pulse 64 Pulse Source Pulse Oximeter Pulse Oximetry (%) 99 Oxygen Delivery Method Room Air Intake Visit Reasons: 3 month follow up Intake Note: Patient here for diabetes f/u. Allergies atorvastatin Allergy (Unknown, Verified 11/13/23 14:01) Unknown Medication List - Last Reconciled 11/13/23 by PB Correa aspirin 81 mg PO DAILY 90 days blood sugar diagnostic (FreeStyle Lite Strips) Test blood sugar twice a day blood-glucose meter (FreeStyle Lite Meter kit) As directed flash glucose scanning reader ([employer] Kindra 2 [place]) As directed flash glucose sensor (FreeStyle Kindra 2 Sensor kit) As directed to test blood sugars insulin glargine (Lantus U-100 Insulin) 12 units subcut DAILY insulin syringe-needle U-100 (Droplet Insulin Syringe) tid testing for diabetes lancets (FreeStyle Lancets) Test blood sugar twice a day lisinopril 2.5 mg PO DAILY 90 days metformin 500 mg PO DAILY multivitamin with iron 1 tab PO DAILY 90 days rosuvastatin (Crestor) 10 mg PO BEDTIME sildenafil 25 mg PO DAILY PRN 30 days Tobacco use date assessed: 11/13/23 Fall risk assessment: No Falls in past year Last assessed Fall Risk: 11/13/23 Dental Screening Dental Screen Date: 11/13/23 Did you have a dental visit in the last 12 months?: Yes Did you have a dental problem in the last 6 months where you did not have access to dental care?: No Was dental information given to patient?: Patient has dentist HPI 3 month follow up HPI Details Pt is a diabetic, on a statin. Last A1C was 6.2, microalbumin is up to date. Denies polyuria, polydipsia, and neuropathy. Pt denies any signs and symptoms of hypoglycemia and does know how to correct it. Eye exam is up to date. Refused pneumonia vaccine. Will send a DEBBIE. [facility] Medical History Type 2 diabetes mellitus Surgical History History of surgery History of tooth extraction Family History Father Stroke Unknown family medical history Pancreatic cancer Mother Cancer HTN (hypertension) Unknown family medical history Diabetes mellitus Sister Mental health disorder Social History Household Members: [facility] Are you a primary child adolescent care to a significant other at home: No Do you presently have visiting nurse or other home services: No Alcohol intake: current Alcohol intake frequency: 0-2 drinks per day Patient Tobacco Use Status: Former Tobacco user Years Smoked: quit 30 years e-Cigarette/Vaping Use: Never Used Second Hand Smoke Exposure: No Advance Directives Date on File: 11/15/22 service: Yes Current occupational status: retired Cognitive needs: No Hearing needs: No Vision needs: No Questionnaire PHQ-9 Over the last 2 weeks, how often have you been bothered by any of the following problems? 1. Little interest or pleasure in doing things: not at all 2. Feeling down, depressed, or hopeless: not at all 3. Trouble falling or staying asleep, or sleeping too much: not at all 4. Feeling tired or having little energy: not at all 5. Poor appetite or overeating: not at all 6. Feeling bad about yourself - or that you are a failure or have let yourself or your family down: not at all 7. Trouble concentrating on things, such as reading the newspaper or watching television: not at all 8. Moving or speaking so slowly that other people could have noticed. Or the opposite - being so fidgety or restless that you have been moving around a lot more than usual: not at all 9. Thoughts that you would be better off or of hurting yourself in some way: not at all Total score: 0 Depression Screening Interpretation: Negative Depression Screening Done: Yes 41241 - PHQ-9 Billing: Yes Source: Developed by Drs. Marco Wright, Ya Chicas, Hiram Ramsey and colleagues, with an educational mervat from [employer]. Thrive Questionnaire Date Thrive assessed: 11/13/23 I am a: Patient What is your living situation today?: I have a steady place to live Within the past 12 months, did the food you bought not last and you didn't have the money to get more?: Never true Within the past 12 months, did you worry whether your food would run out before you got money to buy more?: Never true Do you have trouble paying for medicines?: No Do you have trouble getting transportation to medical appointments?: No Do you have trouble paying your heating and electricity bill?: No Do you have trouble taking care of your child, family member or friend?: No Do you have trouble with day-to-day activities such as bathing, preparing meals, shopping, managing finances, etc.?: No Are you currently unemployed and looking for a job?: No Are you interested in more education?: No AUDIT C Alcohol Use Questionnaire (AUDIT-C) 1. How often do you have a drink containing alcohol?: 2-4 times a month 2. How many drinks containing alcohol do you have on a typical day when you are drinking?: 1 or 2 3. How often do you have six or more drinks on one occasion?: Never Total Score: 2 Score Reviewed/Action Taken: Yes LAINA-7 AMB Questionnaire LAINA-7 Date LAINA - 7 assessed: 11/13/23 Feeling nervous, anxious, or on edge: 0 = Not at all Not being able to stop or control worryin = Not at all Worrying too much about different things: 0 = Not at all Trouble relaxin = Not at all Being so restless that it is hard to sit still: 0 = Not at all Becoming easily annoyed or irritable: 0 = Not at all Feeling afraid as if something awful might happen: 0 = Not at all Total LAINA-7 score (0-4 normal; 5-9 mild; 10-14 moderate; 15-21 severe): 0 Source: Developed by Drs. Marco Wright, Ya Chicas, Hiram Ramsey and colleagues, with an educational mervat from [employer]. Review of Systems Const Reports as per HPI Physical exam (Primary Care) Vital Signs: Last Vital Signs Pulse 64 11/13/23 14:00 BP 130/76 11/13/23 14:00 Pulse Ox 99 11/13/23 14:00 Oxygen Delivery Method Room Air 11/13/23 14:00 BMI result Body Mass Index 35.9 Tobacco/Smoking Status: Tobacco use Status Tobacco use date assessed 11/13/23 11/13/23 14:03 Patient Tobacco Use Status Former Tobacco user 11/13/23 13:59 e-Cigarette/Vaping Use Never Used 11/13/23 13:59 Depression Screening Interpretation: Negative Thrive Assessment: Date of Thrive Assessment Date Thrive assessed 01/14/22 11/13/23 13:59 Const General: cooperative Nutritional Appearance: obese Orientation/consciousness: patient oriented x3 Resp Effort & Inspection: normal respiratory effort Auscultation: clear to auscultation bilaterally Cardio Rate: regular rate Rhythm: regular rhythm Heart sounds: S1 normal heart sound present and S2 normal heart sound present Neuro General: patient oriented x3 Extrem Other: bilat feet: + sensation with use of monofilament Psych Appearance: grossly normal Mental Status: mental status grossly normal Speech and movement: Normal speech and movement present Affect: normal affect Attitude: cooperative Thought process: Normal thought process present Thought content: Normal thought content present Insight: Good insight present (Psych) Judgement: Good judgement present (Psych) Assessment and Plan Assessment & Plan (1) Diabetes: Code(s): E11.9 - Type 2 diabetes mellitus without complications Plan The patient agreed to the use of a medical transport specialist for this encounter. Scribed for PB Bean by Genia Carrero medical transport specialist, on 11/13/2023 at 14:10 EST. Medications: New lisinopril 2.5 mg PO DAILY 90 days 90 tabs 0RF Coding Level of Care Code Est Pt Level 3 (85961) Diagnoses Diabetes E11.9
[2023-11-13 14:00] VITALS: BP 130/76; PULSE 64; O2SAT 99; BMI 35.9
== END 2023-11-13 16:00 | disposition home or self-care (01) ==
PROVIDERS: PCP Nurse Practitioner Family; Visit Provider Nurse Practitioner Family
DX: E11.9 Type 2 diabetes mellitus without complications (principal)
CPT/HCPCS: 99213

== ENCOUNTER 2024-05-17 12:26 | Outpatient (REF) | payer MEDICARE, SELFPAY ==
[2024-05-17 12:42] LABS: MANUAL DIFF FLAG NO
[2024-05-17 13:01] LABS: Basophils Absolute Auto 0.1 X10*3/uL (0.0-0.2); Basophils Percent Auto 0.7 % (0-2); Eosinophils Absolute Auto 0.2 X10*3/uL (0.0-0.4); Eosinophils Percent Auto 2.7 % (0-4); Hemoglobin 14.9 g/dl (14.0-18.0); Imm Gran Abs Auto 0.02 X10*3/uL (0.00-0.03); Imm Gran Pct Auto 0.3 % (0.0-0.4); Lymphocytes Absolute Auto 2.2 X10*3/uL (1.2-4.9); Lymphocytes Percent Auto 31.8 % (20-40); Mean Corpuscular HGB Conc 33.9 g/dl (31.0-36.0); Mean Corpuscular Hemoglobin 30.6 pg (27.0-33.0); Mean Corpuscular Volume 90.3 fL (80.0-98.0); Mean Platelet Volume 10.6 fL (9.4-12.4); Monocytes Absolute Auto 0.4 X10*3/uL (0.1-1.2); Monocytes Percent Auto 5.9 % (2-11); Neutrophils Percent Auto 58.6 % (45-73); Platelet Count 207 X10*3/uL (160-400); Red Blood Count 4.87 X10*6/uL (4.60-5.80); Red Cell Distribution Width 12.6 % (11.0-16.0); White Blood Count 6.8 X10*3/uL (4.8-10.8)
[2024-05-17 13:38] LABS: Alanine Aminotransferase 12 U/L (0-40); Albumin Level 4.7 g/dL (3.5-5.0); Alkaline Phosphatase 60 U/L (39-117); Anion Gap 14 (12-20); Aspartate Amino Transferase 20 U/L (5-37); Blood Urea Nitrogen 12 mg/dL (9-16); Calcium 10.3 mg/dL (8.4-10.2); Carbon Dioxide 26 mmol/L (22-29); Chloride 102 mmol/L (96-108); Cholesterol 113 mg/dL (<200); Estimated Glomerular Filt Rate > 60; Glucose Fasting 106 mg/dL (60-99); HDL Cholesterol 48 mg/dL (>40); LDL Cholesterol Calculated 46 mg/dL (<100); Potassium 4.2 mmol/L (3.3-5.1); Sodium 138 mmol/L (135-145); Total Protein 7.5 g/dL (6.5-8.0); Triglycerides 98 mg/dL (<150)
[2024-05-17 13:44] LABS: Prostate Specific Antigen Scr 1.43 ng/mL (<0.05-4.0)
[2024-05-17 13:46] LABS: TSH reflex Free T4 0.92 uIU/mL (0.32-4.0)
[2024-05-17 15:08] LABS: Appearance Urine Clear; Color Urine Yellow; Glucose Urine UA Negative (Negative); Leukocyte Esterase Urine Negative (Negative); Nitrite Urine Negative (Negative); Specific Gravity - Urine <= 1.005 (1.005-1.025); Urine Blood Negative (Negative); Urine Ketones Negative (Negative); Urine Protein Negative (Neg-Trace)
[2024-05-17 15:13] LABS: Creatinine Urine 45.76 mg/dL; Microalbumin Urine < 5.0 mg/L
== END 2024-05-17 12:27 | disposition home or self-care (01) ==
LOC: HO.LAB 12:26
PROVIDERS: PCP Nurse Practitioner Family; Visit Provider Nurse Practitioner Family
DX: E11.9 Type 2 diabetes mellitus without complications (principal); Z12.5 Encounter for screening for malignant neoplasm of prostate
CPT/HCPCS: 36415; 80053; 80061; 81003; 82043; 82570; 84153; 84443; 85025

== ENCOUNTER 2024-05-19 13:53 | Outpatient (AMB) | payer MEDICARE, SELFPAY ==
--- NOTE | 2024-05-19 13:56 | MHC.PC.OV ---
Vital Signs 05/19/24 14:00 Height 6 ft Weight 253 lb BMI 34.3 BP 128/82 Blood Pressure Location Lt brachial Position Sitting Pulse 59 Pulse Source Pulse Oximeter Pulse Oximetry (%) 97 Oxygen Delivery Method Room Air Intake Visit Reasons: 6 Month follow up - see comments Allergies atorvastatin Allergy (Unknown, Verified 05/19/24 14:17) Unknown Medication List - Last Reconciled 05/19/24 by PB Correa aspirin 81 mg PO DAILY 90 days blood sugar diagnostic (FreeStyle Lite Strips) Test blood sugar twice a day blood-glucose meter (FreeStyle Lite Meter kit) As directed flash glucose scanning reader (FreeStyle Kindra 2 [place]) As directed flash glucose sensor (FreeStyle Kindra 2 Sensor kit) As directed to test blood sugars insulin syringe-needle U-100 (Droplet Insulin Syringe) tid testing for diabetes lancets (FreeStyle Lancets) Test blood sugar twice a day lisinopril 2.5 mg PO DAILY 90 days metformin 500 mg PO DAILY multivitamin with iron 1 tab PO DAILY 90 days rosuvastatin (Crestor) 10 mg PO BEDTIME sildenafil 25 mg PO DAILY PRN 30 days Tobacco use date assessed: 11/13/23 Dental Screening Dental Screen Date: 11/13/23 HPI 6 Month follow up - see comments HPI Details Pt is a diabetic, on an DEBBIE and a statin. A1C in office today is 6.5. Microalbumin is up to date. Denies polyuria, polydipsia, and neuropathy. Pt denies any signs and symptoms of hypoglycemia and does know how to correct it. [facility] Medical History Type 2 diabetes mellitus Surgical History History of surgery History of tooth extraction Family History Father Stroke Unknown family medical history Pancreatic cancer Mother Cancer HTN (hypertension) Unknown family medical history Diabetes mellitus Sister Mental health disorder Social History Household Members: Spouse Housing: Condominium Are you a primary residential care officer to a significant other at home: No Do you presently have visiting nurse or other home services: No Alcohol intake: current Alcohol intake frequency: 0-2 drinks per day Patient Tobacco Use Status: Former Tobacco user Years Smoked: quit 30 years e-Cigarette/Vaping Use: Never Used Second Hand Smoke Exposure: No Advance Directives Date on File: 11/15/22 service: Yes Current occupational status: retired Cognitive needs: No Hearing needs: No Vision needs: No Questionnaire PHQ-9 Over the last 2 weeks, how often have you been bothered by any of the following problems? 54849 - PHQ-9 Billing: Patient declined-do not bill Source: Developed by Drs. Marco Wright, Ya Chicas, Hiram Ramsey and colleagues, with an educational mervat from [employer]. Thrive Questionnaire Date Thrive assessed: 11/13/23 LAINA-7 AMB Questionnaire LAINA-7 Date LAINA - 7 assessed: 11/13/23 Source: Developed by Drs. Marco Wright, Ya Chicas, Hiram Ramsey and colleagues, with an educational mervat from [employer]. LAINA-7 Assessment Billing LAINA-7 Assessment Tool: pt declined-do not bill Review of Systems Const Reports as per HPI Physical exam (Primary Care) Vital Signs: Last Vital Signs Pulse 59 05/19/24 14:00 BP 128/82 05/19/24 14:00 Pulse Ox 97 05/19/24 14:00 Oxygen Delivery Method Room Air 05/19/24 14:00 BMI result Body Mass Index 34.3 Tobacco/Smoking Status: Tobacco use Status Tobacco use date assessed 11/13/23 05/19/24 13:57 Patient Tobacco Use Status Former Tobacco user 05/19/24 13:57 e-Cigarette/Vaping Use Never Used 05/19/24 13:57 Thrive Assessment: Date of Thrive Assessment Date Thrive assessed 11/13/23 05/19/24 13:57 Const General: cooperative Nutritional Appearance: obese Orientation/consciousness: patient oriented x3 Resp Effort & Inspection: normal respiratory effort Auscultation: clear to auscultation bilaterally Cardio Rate: regular rate Rhythm: regular rhythm Heart sounds: S1 normal heart sound present, S2 normal heart sound present and Murmur heart sound present systolic (faint) Neuro General: patient oriented x3 Extrem Other: bilat feet: + sensation with use of monofilament, feet intact Psych Appearance: grossly normal Mental Status: mental status grossly normal Speech and movement: Normal speech and movement present Affect: normal affect Attitude: cooperative Thought process: Normal thought process present Thought content: Normal thought content present Insight: Good insight present (Psych) Judgement: Good judgement present (Psych) Assessment and Plan Assessment & Plan (1) Diabetes: Code(s): E11.9 - Type 2 diabetes mellitus without complications Plan: cont current regime Plan The patient agreed to the use of a medical office receptionist for this encounter. Scribed for PB Bean by Genia Carrero medical office receptionist, on 05/19/2024 at 14:15 EST. Medications: Refilled sildenafil administer 30 minutes to 4 hours before activity 25 mg PO DAILY 30 days PRN 30 tabs 4RF sexual activity Coding Level of Care Code Est Pt Level 3 (80497) Complex EM visit Add On G2211 Diagnoses Diabetes E11.9
[2024-05-19 14:00] VITALS: BP 128/82; PULSE 59; O2SAT 97; BMI 34.3
== END 2024-05-19 17:41 | disposition home or self-care (01) ==
PROVIDERS: PCP Nurse Practitioner Family; Visit Provider Nurse Practitioner Family
DX: E11.9 Type 2 diabetes mellitus without complications (principal)
CPT/HCPCS: 83036; 99213; G2211

== ENCOUNTER 2024-11-23 13:38 | Outpatient (AMB) | payer MEDICARE, SELFPAY ==
[2024-11-23 13:41] VITALS: BP 130/80; PULSE 66; O2SAT 97; BMI 35.1
--- NOTE | 2024-11-23 13:41 | A.OFFPC_ITS ---
Vital Signs 11/23/24 13:41 Height 6 ft Weight 259 lb BMI 35.1 BP 130/80 Blood Pressure Location Rt brachial Position Sitting Pulse 66 Pulse Source Pulse Oximeter Pulse Oximetry (%) 97 Intake Visit Reasons: follow up Intake Note: pt is here for f/up Strip Presser Required: No Accompanied by: Self / Same As Patient Allergies atorvastatin Allergy (Unknown, Verified 11/23/24 14:14) Unknown Medication List - Last Reconciled 11/23/24 by KENDRA CorreaP- aspirin 81 mg PO DAILY 90 days blood sugar diagnostic (FreeStyle Lite Strips) Test blood sugar twice a day blood-glucose meter (FreeStyle Lite Meter kit) As directed cephalexin 500 mg PO Q8H flash glucose scanning reader ([employer] Kindra 2 [place]) As directed flash glucose sensor (FreeStyle Kindra 2 Sensor kit) As directed to test blood sugars insulin syringe-needle U-100 (Droplet Insulin Syringe) tid testing for diabetes lancets (FreeStyle Lancets) Test blood sugar twice a day lisinopril 2.5 mg PO DAILY 90 days metformin 500 mg PO DAILY multivitamin with iron 1 tab PO DAILY 90 days rosuvastatin 10 mg PO BEDTIME sildenafil 25 mg PO DAILY PRN 30 days Tobacco use date assessed: 11/23/24 Fall risk assessment: No Falls in past year Last assessed Fall Risk: 11/23/24 Dental Screening Dental Screen Date: 11/23/24 Did you have a dental visit in the last 12 months?: Yes Did you have a dental problem in the last 6 months where you did not have access to dental care?: No Was dental information given to patient?: Patient has dentist HPI follow up HPI Details Chief Complaint History of Present Illness The patient is a 69-year-old male presenting with Type 2 Diabetes Mellitus. The condition has been managed well over time, with the patient denying symptoms such as neuropathy, polyuria, or polydipsia, indicative of stable glycemic control. His Hemoglobin A1c level reported today is 6.9%, suggesting controlled blood glucose levels, though close monitoring and routine laboratory evaluations are encouraged in the near future. This condition has been a focus of prior medical care with regular interventions to maintain glycemic levels within an acceptable range. The patient also exhibits symptoms of Hypertensive Heart Disease, evident from a systolic murmur noted on physical examination. While he denies any current symptoms suggesting exacerbation, a trace of edema was observed in the bilateral lower extremities, which may correlate with the cardiac condition. Further cardiovascular assessment is warranted to evaluate the murmur and monitor for potential heart failure progression. refuses vaccinations Social History Health Maintenance Review of Systems Physical Exam General: Cooperative, healthy appearing, comfortable, no acute distress and well developed, obese Orientation: Patient oriented x3 Limitations: No limitations Head: Normal to inspection Ears: Hearing grossly normal bilaterally Nose: Normal external nose present Face and sinus: Normal facial exam Eyes: Appearance normal, both eyes and all related structures Neck: Normal visual inspection and Yes full ROM Respiratory: Normal respiratory effort and able to speak in complete sentences. Clear to auscultation bilaterally Cardiovascular: Systolic murmur noted on exam. Normal S1 and S2 GI: Normal to inspection. Soft to palpation and nontender Skin: No rashes or lesions noted Neuro: Patient oriented x3 Extremities: Maybe trace edema to bilateral extremities. Positive sensation with use of monofilament to feet and his feet were intact Results Plan Patient was informed and verbally consented to the use of an ambient scribe for clinic note documentation during this visit. Discussion Notes Patient Instructions [facility] Medical History Type 2 diabetes mellitus Surgical History History of surgery History of tooth extraction Family History Father Stroke Unknown family medical history Pancreatic cancer Mother Cancer HTN (hypertension) Unknown family medical history Diabetes mellitus Sister Mental health disorder Social History Household Members: [facility] Are you a primary interior plant caretaker to a significant other at home: No Do you presently have visiting nurse or other home services: No Alcohol intake: current Alcohol intake frequency: 0-2 drinks per day Patient Tobacco Use Status: Former Tobacco user Years Smoked: quit 30 years e-Cigarette/Vaping Use: Never Used Second Hand Smoke Exposure: No Advance Directives Date on File: 11/15/22 service: Yes Current occupational status: retired Cognitive needs: No Hearing needs: No Vision needs: No Questionnaire PHQ-9 Over the last 2 weeks, how often have you been bothered by any of the following problems? 1. Little interest or pleasure in doing things: not at all 2. Feeling down, depressed, or hopeless: not at all 3. Trouble falling or staying asleep, or sleeping too much: not at all 4. Feeling tired or having little energy: not at all 5. Poor appetite or overeating: not at all 6. Feeling bad about yourself - or that you are a failure or have let yourself or your family down: not at all 7. Trouble concentrating on things, such as reading the newspaper or watching television: not at all 8. Moving or speaking so slowly that other people could have noticed. Or the opposite - being so fidgety or restless that you have been moving around a lot more than usual: not at all 9. Thoughts that you would be better off or of hurting yourself in some way: not at all Total score: 0 Depression Screening Interpretation: Negative Depression Screening Done: Yes 84994 - PHQ-9 Billing: Yes Source: Developed by Drs. Marco Wright, Ya Chicas, Hiram Ramsey and colleagues, with an educational mervat from [employer]. Thrive Questionnaire Date Thrive assessed: 11/23/24 I am a: Patient What is your living situation today?: I have a steady place to live Within the past 12 months, did the food you bought not last and you didn't have the money to get more?: Never true Within the past 12 months, did you worry whether your food would run out before you got money to buy more?: Never true Do you have trouble paying for medicines?: No Do you have trouble getting transportation to medical appointments?: No Do you have trouble paying your heating and electricity bill?: No Do you have trouble taking care of your child, family member or friend?: No Are you currently unemployed and looking for a job?: No Are you interested in more education?: No Please select the resources that you would like help with: None Currently or been in a relationship where the following occur: No concerns reported THRIVE Score: 0 AUDIT C Alcohol Use Questionnaire (AUDIT-C) 1. How often do you have a drink containing alcohol?: 2-4 times a month 2. How many drinks containing alcohol do you have on a typical day when you are drinking?: 1 or 2 3. How often do you have six or more drinks on one occasion?: Never Total Score: 2 Score Reviewed/Action Taken: Yes LAINA-7 AMB Questionnaire LAINA-7 Date LAINA - 7 assessed: 11/23/24 Feeling nervous, anxious, or on edge: 0 = Not at all Not being able to stop or control worryin = Not at all Worrying too much about different things: 0 = Not at all Trouble relaxin = Not at all Being so restless that it is hard to sit still: 0 = Not at all Becoming easily annoyed or irritable: 0 = Not at all Feeling afraid as if something awful might happen: 0 = Not at all Total LAINA-7 score (0-4 normal; 5-9 mild; 10-14 moderate; 15-21 severe): 0 Source: Developed by Drs. Marco Wright, Ya Chicas, Hiram Ramsey and colleagues, with an educational mervat from [employer]. LAINA-7 Assessment Billing LAINA-7 Assessment Tool: LAINA-7 Assessment 04049 Physical exam (Primary Care) Vital Signs: Last Vital Signs Pulse 66 11/23/24 13:41 BP 130/80 11/23/24 13:41 Pulse Ox 97 11/23/24 13:41 BMI result Body Mass Index 35.1 Tobacco/Smoking Status: Tobacco use Status Tobacco use date assessed 11/23/24 11/23/24 13:42 Patient Tobacco Use Status Former Tobacco user 11/23/24 13:42 e-Cigarette/Vaping Use Never Used 11/23/24 13:42 PHQ-9: PHQ-9 Score PHQ-9: Total score 0 11/23/24 13:42 Depression Screening Interpretation: Negative Thrive Assessment: Date of Thrive Assessment Date Thrive assessed 11/23/24 11/23/24 13:42 Currently or been in a relationship where the following occur: No concerns reported Results AMB Hemoglobin A1c AMB Hemoglobin A1c 6.9 % Last Edit by Samson Everett CMA on 11/23/24 14: 05 Results Reviewed Results Reviewed: Laboratory Last Values Hgb A1c (Clinic) 6.9 % (4.0-6.0) H 11/23/24 14:03 Coding Level of Care Code Est Pt Level 3 (20688) Diagnoses Diabetes E11.9 Systolic murmur R01.1 Additional Codes LAINA-7 Assessment Billing - LAINA-7 Assessment Tool: LAINA-7 Assessment 20716 ([id number]) PHQ-9 - 16252 - PHQ-9 Billing: Yes ([id number]) Assessment & Plan Assessment & Plan (1) Diabetes: Code(s): E11.9 - Type 2 diabetes mellitus without complications Category: Medical (2) Systolic murmur: Code(s): R01.1 - Cardiac murmur, unspecified Category: Medical Plan . Orders: Orders Lipid Panel Today E11.9 - Type 2 diabetes mellitus without complications CA echo transthoracic complete Today R01.1 - Cardiac murmur, unspecified AMB Hemoglobin A1c Today Z13.9 - Encounter for screening, unspecified Complete Blood Count Auto Diff Today E11.9 - Type 2 diabetes mellitus without complications Comprehensive [place]. Panel Fast Today E11.9 - Type 2 diabetes mellitus without complications TSH reflex Free T4 Today E11.9 - Type 2 diabetes mellitus without complications UA CC w/rflx Micro + Cult Today E11.9 - Type 2 diabetes mellitus without complications
== END 2024-11-23 14:26 | disposition home or self-care (01) ==
PROVIDERS: PCP Nurse Practitioner Family; Visit Provider Nurse Practitioner Family
DX: E11.9 Type 2 diabetes mellitus without complications (principal); R01.1 Cardiac murmur, unspecified; Z13.9 Encounter for screening, unspecified

== ENCOUNTER → 2024-11-23 13:38 | Outpatient (BNVA) | payer MEDICARE, SELFPAY | PROVIDERS: PCP Nurse Practitioner Family; Visit Provider Nurse Practitioner Family | DX: E11.9 Type 2 diabetes mellitus without complications (principal); I11.9 Hypertensive heart disease without heart failure; R01.1 Cardiac murmur, unspecified | CPT/HCPCS: 83036; 96127; 99212 ==

== ENCOUNTER → 2025-03-10 13:41 | Outpatient (REF) | payer MEDICARE, SELFPAY ==
--- OUTSIDE RECORDS SUMMARY | 2025-03-10 15:56 | XMS_ITS | Continuity of Care Document ---
Author Name [facility] Organization [facility] Care Team Providers Care Job Specification Writer Name Role Phone [facility] Unavailable Unavailable Social History Combined list of available smoking, tobacco, and other social history from [facility] Defense and [facility] facilities. Social History Type Response Date Comment Sourc e Tobacco smoking status [facility] [place] [facility] NEVER USED 06/28/2020 [facility] [place] [facility]
== END ==
LOC: HO.CARD 13:41
PROVIDERS: PCP Nurse Practitioner Family; Visit Provider Nurse Practitioner Family
DX: R01.1 Cardiac murmur, unspecified (principal)
CPT/HCPCS: 93306

== ENCOUNTER → 2025-03-10 13:42 | Outpatient (BNV) | payer MEDICARE, SELFPAY | PROVIDERS: PCP Nurse Practitioner Family; Visit Provider Internal Medicine Cardiovascular Disease | DX: R01.1 Cardiac murmur, unspecified (principal) | CPT/HCPCS: 93306 ==

== ENCOUNTER 2025-05-10 11:19 | Outpatient (REF) | payer MEDICARE, SELFPAY ==
--- OUTSIDE RECORDS SUMMARY | 2020-06-28 06:00 | XMS_ITS | Continuity of Care Document ---
Author Name [facility] Organization [facility] Care Team Providers Care Dobby Loom Chain Pegger Name Role Phone [facility] Unavailable Unavailable Social History Combined list of available smoking, tobacco, and other social history from [facility] of Defense and Veterans Affairs facilities. Social History Type Response Date Comment Sourc e Tobacco smoking status [facility] VA-TOBACCO NEVER USED 06/28/2020 [facility]
[2025-05-10 12:58] LABS: MANUAL DIFF FLAG NO
[2025-05-10 13:16] LABS: Hematocrit 42.3 % (42.0-52.0); Hemoglobin 14.4 g/dl (14.0-18.0); Imm Gran Abs Auto 0.00 X10*3/uL (0.00-0.03); Imm Gran Pct Auto 0.0 % (0.0-0.4); Lymphocytes Absolute Auto 1.7 X10*3/uL (1.2-4.9); Mean Corpuscular HGB Conc 34.0 g/dl (31.0-36.0); Mean Corpuscular Hemoglobin 30.3 pg (27.0-33.0); Mean Corpuscular Volume 88.9 fL (80.0-98.0); NRBC Abs Auto 0.000 X10*3/uL (0.0-0.012); NRBC Pct Auto 0.0 /100WBC (0.0-0.2); Platelet Count 184 X10*3/uL (160-400); Red Blood Count 4.76 X10*6/uL (4.60-5.80); White Blood Count 5.3 X10*3/uL (4.8-10.8)
[2025-05-10 13:22] LABS: Appearance Urine Clear; Glucose Urine UA Negative (Negative); PH 6.5 (5.0-9.0); Specific Gravity - Urine 1.010 (1.005-1.025)
[2025-05-10 16:43] LABS: Alanine Aminotransferase 9 U/L (0-40); Albumin Level 4.6 g/dL (3.5-5.0); Alkaline Phosphatase 54 U/L (39-117); Anion Gap 13 (12-20); Aspartate Amino Transferase 28 U/L (5-37); Blood Urea Nitrogen 15 mg/dL (9-16); Calcium 9.4 mg/dL (8.4-10.2); Carbon Dioxide 25 mmol/L (22-29); Chloride 102 mmol/L (96-108); Cholesterol 97 mg/dL (<200); Estimated Glomerular Filt Rate > 60; HDL Cholesterol 44 mg/dL (>40); Potassium 4.4 mmol/L (3.3-5.1); Sodium 136 mmol/L (135-145); Total Protein 6.8 g/dL (6.5-8.0); Triglycerides 56 mg/dL (<150)
== END 2025-05-10 11:20 | disposition home or self-care (01) ==
LOC: HO.HMGCLDS 11:19
PROVIDERS: PCP Nurse Practitioner Family; Visit Provider Nurse Practitioner Family
DX: E11.9 Type 2 diabetes mellitus without complications (principal)
CPT/HCPCS: 36415; 80053; 80061; 81003; 82043; 82570; 84443; 85025

== ENCOUNTER 2025-05-24 11:10 | Outpatient (AMB) | payer MEDICARE, SELFPAY ==
--- OUTSIDE RECORDS SUMMARY | 2020-06-28 06:00 | XMS_ITS | Continuity of Care Document ---
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 Social History Type Response Date Comment Sourc e Tobacco smoking status [facility]AC[facility] NEVER USED 06/28/2020 [facility]
--- NOTE | 2025-05-24 11:13 | A.OFFPC_ITS ---
Vital Signs 05/24/25 11:15 Height 6 ft Weight 243 lb BMI 33.0 BP 140/72 H Blood Pressure Location Rt brachial Position Sitting BP not taken reason Patient Refused Respiration 18 Pulse 67 Pulse Source Pulse Oximeter Temp 98.1 F Temp Source Oral Pulse Oximetry (%) 98 Oxygen Delivery Method Room Air Intake Visit Reasons: Annual PE A1c needed - see comments Allergies atorvastatin Allergy (Unknown, Verified 11/23/24 14:14) Unknown Tobacco use date assessed: 05/24/25 Fall risk assessment: No Falls in past year Last assessed Fall Risk: 05/24/25 Dental Screening Dental Screen Date: 05/24/25 Did you have a dental visit in the last 12 months?: Yes Did you have a dental problem in the last 6 months where you did not have access to dental care?: No Was dental information given to patient?: Patient has dentist HPI Annual PE A1c needed - see comments HPI Details History of Present Illness The patient is a 70-year-old male presenting with a physical examination and management of diabetes. He reports doing quite well overall, with an A1c of 6.1, and denies any neuropathy, polyuria, or polydipsia. The patient is fairly active around the house and his colon cancer screening is up to date. His microalbumin is also up to date. He is obese and has flat feet bilaterally, but they are intact with positive sensation using monofilament. He refuses vaccinations. Health Maintenance - Colon cancer screening is up to date - Microalbumin screening is up to date - Refuses vaccinations Social History - Exercise: [place]ly [place] [facility] [place] Review of Systems - General: Denies fatigue, weight loss - Cardiovascular: Denies chest pain - Respiratory: Denies increased dyspnea - Gastrointestinal: Denies abdominal iveth n, blood in stool, constipation, diarrhea - Genitourinary: Denies urinary issues - Neurological: Denies neuropathy - Psychiatric: Denies suicidal ideation, homicidal ideation Physical Exam General: Cooperative, healthy appearing, comfortable, no acute distress and well developed, obese Orientation: Patient oriented x3 Limitations: No limitations Head: Normal to inspection Ears: Hearing grossly normal bilaterally Nose: Normal external nose present Face and sinus: Normal facial exam Eyes: Appearance normal, both eyes and all related structures Neck: Normal visual inspection and Yes full ROM Respiratory: Normal respiratory effort and able to speak in complete sentences. Clear to auscultation bilaterally Cardiovascular: Regular rate and rhythm. Normal S1 and S2 GI: Normal to inspection. Soft to palpation and nontender : Testicles without masses/lesions and no hernias appreciated Skin: No rashes or lesions noted Neuro: Patient oriented x3 Extremities: Obese, flat feet bilaterally but intact with positive sensation with use of monofilament Results - Labs: A1c 6.1 Plan The patient will continue with his current diabetes management plan, given his stable A1c of 6.1, and maintain regular physical activity around the house. Preventative care measures, including colon cancer screening and microalbumin tests, are up to date, and these should be maintained. The patient has declined vaccinations, and this decision should be revisited in future consultations to ensure comprehensive preventative care. [facility] Medical History Type 2 diabetes mellitus Surgical History History of surgery History of tooth extraction Family History Father Stroke Unknown family medical history Pancreatic cancer Mother Cancer HTN (hypertension) Unknown family medical history Diabetes mellitus Sister Mental health disorder Social History Household Members: Spouse Housing: Condominium Are you a primary manager respiratory care to a significant other at home: No Do you presently have visiting nurse or other home services: No Alcohol intake: current Alcohol intake frequency: 0-2 drinks per day Patient Tobacco Use Status: Former Tobacco user Years Smoked: quit 30 years e-Cigarette/Vaping Use: Never Used Second Hand Smoke Exposure: No Advance Directives Date on File: 11/15/22 service: Yes Current occupational status: retired Cognitive needs: No Hearing needs: No Vision needs: No Questionnaire PHQ-9 Over the last 2 weeks, how often have you been bothered by any of the following problems? 1. Little interest or pleasure in doing things: not at all 2. Feeling down, depressed, or hopeless: not at all 3. Trouble falling or staying asleep, or sleeping too much: not at all 4. Feeling tired or having little energy: not at all 5. Poor appetite or overeating: not at all 6. Feeling bad about yourself - or that you are a failure or have let yourself or your family down: not at all 7. Trouble concentrating on things, such as reading the newspaper or watching television: not at all 8. Moving or speaking so slowly that other people could have noticed. Or the opposite - being so fidgety or restless that you have been moving around a lot more than usual: not at all 9. Thoughts that you would be better off or of hurting yourself in some way: not at all Total score: 0 Depression Screening Interpretation: Negative Depression Screening Done: Yes 22362 - PHQ-9 Billing: Yes Source: Developed by Drs. Marco Wright, Ya Chicas, Hiram Ramsey and colleagues, with an educational mervat from [employer]. Thrive Questionnaire Date Thrive assessed: 11/16/24 I am a: Patient What is your living situation today?: I have a steady place to live Within the past 12 months, did the food you bought not last and you didn't have the money to get more?: Never true Within the past 12 months, did you worry whether your food would run out before you got money to buy more?: Never true Do you have trouble paying for medicines?: No Do you have trouble getting transportation to medical appointments?: No Do you have trouble paying your heating and electricity bill?: No Do you have trouble taking care of your child, family member or friend?: No Do you have trouble with day-to-day activities such as bathing, preparing meals, shopping, managing finances, etc.?: No Are you currently unemployed and looking for a job?: No Are you interested in more education?: No Please select the resources that you would like help with: None Currently or been in a relationship where the following occur: No concerns reported THRIVE Score: 0 AUDIT C Alcohol Use Questionnaire (AUDIT-C) 1. How often do you have a drink containing alcohol?: 2-4 times a month 2. How many drinks containing alcohol do you have on a typical day when you are drinking?: 1 or 2 3. How often do you have six or more drinks on one occasion?: Never Total Score: 2 Score Reviewed/Action Taken: Yes LAINA-7 AMB Questionnaire LAINA-7 Date LAINA - 7 assessed: 05/24/25 Feeling nervous, anxious, or on edge: 0 = Not at all Not being able to stop or control worryin = Not at all Worrying too much about different things: 0 = Not at all Trouble relaxin = Not at all Being so restless that it is hard to sit still: 0 = Not at all Becoming easily annoyed or irritable: 0 = Not at all Feeling afraid as if something awful might happen: 0 = Not at all Total LAINA-7 score (0-4 normal; 5-9 mild; 10-14 moderate; 15-21 severe): 0 Source: Developed by Drs. Marco Wright, Ya Chicas, Hiram Ramsey and colleagues, with an educational mervat from [employer]. LAINA-7 Assessment Billing LAINA-7 Assessment Tool: LAINA-7 Assessment 37818 ACT Questionnaire In the past 4 weeks, how much of the time did your asthma keep you from getting as much done at work, school or at home?: All of the time Score: 1 Physical exam (Primary Care) Vital Signs: Last Vital Signs Temp 98.1 F 05/24/25 11:15 Pulse 67 05/24/25 11:15 Resp 18 05/24/25 11:15 BP 140/72 H 05/24/25 11:15 Pulse Ox 98 05/24/25 11:15 Oxygen Delivery Method Room Air 05/24/25 11:15 BMI result Body Mass Index 33.0 Tobacco/Smoking Status: Tobacco use Status Tobacco use date assessed 05/24/25 05/24/25 11:22 Patient Tobacco Use Status Former Tobacco user 05/24/25 11:22 e-Cigarette/Vaping Use Never Used 05/24/25 11:22 PHQ-9: PHQ-9 Score PHQ-9: Total score 0 05/24/25 11:42 Depression Screening Interpretation: Negative Thrive Assessment: Date of Thrive Assessment Date Thrive assessed 11/16/24 05/24/25 11:22 Currently or been in a relationship where the following occur: No concerns reported Results AMB Hemoglobin A1c AMB Hemoglobin A1c 6.1 % Last Edit by Renea Landeros MA on 05/24/25 11:37 Results Reviewed Results Reviewed: Laboratory Last Values Hgb A1c (Clinic) 6.1 % (4.0-6.0) H 05/24/25 11:35 Coding Level of Care Code Est Pt Level 3 (62141) Est Pt Prev Care >65y(26525) Diagnoses Screening PSA (prostate specific antigen) Z12.5 Diabetes E11.9 Encounter for routine adult physical exam with abnormal findings Z00.01 Additional Codes LAINA-7 Assessment Billing - LAINA-7 Assessment Tool: LAINA-7 Assessment 41323 ([id number]) PHQ-9 - 25453 - PHQ-9 Billing: Yes ([id number]) Assessment & Plan Assessment & Plan (1) Screening PSA (prostate specific antigen): Code(s): Z12.5 - Encounter for screening for malignant neoplasm of prostate Category: Medical (2) Diabetes: Code(s): E11.9 - Type 2 diabetes mellitus without complications Category: Medical (3) Encounter for routine adult physical exam with abnormal findings: Code(s): Z00.01 - Encounter for general adult medical examination with abnormal findings Category: Medical Plan . Orders: Orders Prostate Specific Antigen Scr Today Z12.5 - Encounter for screening for malignant neoplasm of prostate AMB Hemoglobin A1c Today Z13.9 - Encounter for screening, unspecified
[2025-05-24 11:15] VITALS: BP 140/72; PULSE 67; RESP 18; TEMP 36.7; O2SAT 98; BMI 33.0
== END 2025-05-24 11:44 | disposition home or self-care (01) ==
LOC: HO.HMCC 11:11
PROVIDERS: PCP Nurse Practitioner Family; Visit Provider Nurse Practitioner Family
DX: Z00.00 Encounter for general adult medical examination without abnormal findings (principal); E11.9 Type 2 diabetes mellitus without complications; Z12.5 Encounter for screening for malignant neoplasm of prostate

== ENCOUNTER → 2025-05-24 11:10 | Outpatient (BNVA) | payer MEDICARE, SELFPAY | PROVIDERS: PCP Nurse Practitioner Family; Visit Provider Nurse Practitioner Family | DX: Z00.01 Encounter for general adult medical examination with abnormal findings (principal); E11.9 Type 2 diabetes mellitus without complications; E66.9 Obesity, unspecified; M21.42 Flat foot [pes planus] (acquired), left foot; M21.41 Flat foot [pes planus] (acquired), right foot | CPT/HCPCS: 83036; 96127; 99397 ==